=== PATIENT | male | born 1975 | race Caucasian/White ===

== ENCOUNTER 2021-03-29 18:48 | Inpatient (IN) | payer BC, SELFPAY ==
--- NOTE | ~2021-03-29 | CT_ITS ---
EXAMINATION: CT abdomen pelvis w con INDICATION: Pelvic pain TECHNIQUE: Computed tomographic images of the abdomen and pelvis were obtained after the administrati on of 100 cc of Omnipaque 350 intravenous contrast. The dose-length product (DLP) was 1730.43 mGy-cm. Automated exposure control and iterative reconstruction technique were employed. COMPARISON: 07/13/2016 FINDINGS: Minimal dependent atelectasis is present in the lung bases. The heart size is normal. The l iver, spleen, pancreas, gallbladder, and adrenal glands are normal. Nonobstructing stones of the kidn eys measure up to 3 mm on the left. There are no stones in the ureters or bladder. There is mild left inguinal lymphadenopathy, likely reactive. There is no free intraperitoneal gas or evidence of bowel obstruction. There is diffuse swelling of the scrotum. No scrotal or perineal gas is identified. The re is mild lumbar spondylosis. IMPRESSION: 1. Diffuse swelling of the scrotum without scrotal or perineal gas, consistent with edema versus infe ction. Reviewed, dictated and finalized at location A. IMPRESSION: 1. Diffuse swelling of the scrotum without scrotal or perineal gas, consistent with edema versus infection.
--- NOTE | ~2021-03-29 | US_ITS ---
EXAMINATION: US scrotum doppler DATE: 03/29/2021 22:57 INDICATION: Scrotal pain and swelling TECHNIQUE: Testicular sonogram utilizing grayscale and Doppler COMPARISON: None. FINDINGS: The right testis measures 3.7 x 2.4 x 3.6 cm. The left testis measures 3.2 x 3.2 x 4.4 cm. There is normal vascular flow to both testes. There is scrotal edema. The epididymides have a heterog eneous appearance which may be due to edema. A small left varicocele is noted. IMPRESSION: 1. Scrotal edema. Heterogeneous appearance of the epididymides is likely related to scrotal edema. Reviewed, dictated and finalized at location A. IMPRESSION: 1. Scrotal edema. Heterogeneous appearance of the epididymides is likely relate d to scrotal edema.
[2021-03-29 18:50] VITALS: BP 160/100; PULSE 116; RESP 16; TEMP 36.5; O2SAT 99
--- NOTE | 2021-03-29 20:02 | ED.GENADULT ---
HPI - General Adult General Chief complaint: Skin/Abscess/Foreign Body Stated complaint: testicular swelling Time Seen by Provider: 03/29/21 19:54 History of Present Illness HPI narrative: Patient 45-year-old gentleman who presents the emergency department with chief complaint of scrotal pain and swelling. Patient reports he is a poorly controlled diabetic and has not been taking his Metformin due to it causing pancreatitis. The patient states that about a week ago he started having pain and swelling in the left side of his scrotum. The patient states he noticed there was a small knot in the area and talk to his primary care physician who started him on oral clindamycin patient states that as this has been treated and is continued to increase in swelling has become a more red tender and swollen the patient states that now his scrotum is significantly swollen to about the size of a grapefruit. The patient states that it is exquisitely painful denies crepitance denies the area turning black or necrotic he does report that there is an ulceration present on the left side. Related Data Allergies Allergy/AdvReac Type Severity Reaction Status Date / Time [place] Pepper Allergy Unknown FACE RED Uncoded 02/09/19 03:02 AND SWELLS AND ITCHY SKIN Review of Systems Review of Systems: A 10 system review of systems was completed on the patient and is negative except for what is stated in the HPI. Nursing and ancillary documentation was reviewed. Exam Narrative: GENERAL: Well-appearing, well-nourished, and in no acute distress. HEAD: Normocephalic, atraumatic. EYES: PERRLA and EOMI. ENT: Nares clear, no rhinorrhea or epistaxis. Mucous membranes moist. NECK: Supple. CHEST: Clear to auscultation. No respiratory distress. HEART: Regular rate and rhythm. No murmur heard. Normal peripheral pulses. ABDOMEN: Soft, nontender, nondistended, normal active bowel sounds. : The scrotum is significantly edematous there is erythema of the entire scrotum and the scrotum is swollen there is a firm tender area in the left hemiscrotum there is no fluctuance there is no crepitance there is a ulceration present on the superficial skin on the left side EXTREMITIES: Normal range of motion. No edema. SKIN: Warm, dry, no rash. NEURO: No focal deficits. Alert and oriented x3. PSYCH: Normal mood and affect. Course Vital Signs Vital signs: Vital Signs Temperature 36.5 C 03/29/21 18:50 Pulse Rate 116 H 03/29/21 18:50 Respiratory Rate 16 03/29/21 18:50 Blood Pressure 160/100 H 03/29/21 18:50 Pulse Oximetry 99 03/29/21 18:50 Temperature 36.5 C 03/29/21 18:50 Pulse Rate 113 H 03/30/21 03:45 Respiratory Rate 19 03/30/21 03:45 Blood Pressure 141/83 H 03/30/21 03:45 Pulse Oximetry 98 03/30/21 03:45 Medical Decision Making Vital Signs Vital Signs: Vital Signs Temperature 36.5 C 03/29/21 18:50 Pulse Rate 116 H 03/29/21 18:50 Respiratory Rate 16 03/29/21 18:50 Blood Pressure 160/100 H 03/29/21 18:50 Pulse Oximetry 99 03/29/21 18:50 Temperature 36.5 C 03/29/21 18:50 Pulse Rate 113 H 03/30/21 03:45 Respiratory Rate 19 03/30/21 03:45 Blood Pressure 141/83 H 03/30/21 03:45 Pulse Oximetry 98 03/30/21 03:45 Lab Data Result diagrams: 03/29/21 21:17 03/30/21 01:57 Labs: Lab Results 03/29/21 03/29/21 03/29/21 Range/Units 21:17 22:01 22:24 WBC 13.2 H (4.5-10.0) K/mm3 RBC 4.44 L (4.6-6.20) M/mm3 Hgb 14.2 (14.0-18.0) g/dL Hct 39.2 L (42.0-52.0) % MCV 88.3 (80-100) fl MCH 32.0 (26-34) pg MCHC 36.2 H (32-36) g/dl RDW 12.6 (11.5-14.5) % Plt Count 260 (150-375) k/mm3 MPV 10.0 (7.4-10.4) fl Immature Gran % (Auto) 0.6 H (0-0.5) % Neut % (Auto) 73.8 H (45.5-73.1) % Lymph % (Auto) 16.6 L (18.3-44.2) % [place] % (Auto) 7.8 (2.6-8.5) % Eos % (Auto) 0.9 (0-4.4) % Baso % (Auto) 0.3 (
[2021-03-29] MEDS: ONDANSETRON INJ 4 MG/2 ML VIAL IV PUSH (21:21)
[2021-03-29] MEDS: MORPHINE SULFATE (*CRX) 4 MG/ML INJ IV PUSH (21:21)
[2021-03-29] MEDS: SODIUM CHLORIDE 0.9% IV 1,000 ML 999 ML IV CONT (21:22)
[2021-03-29 21:28] LABS: Basophils Percent Auto 0.3 % (0.2-1.2); Eosinophils Absolute Auto 0.1 K/mm3 (0-0.3); Eosinophils Percent Auto 0.9 % (0-4.4); Hematocrit 39.2 % (42.0-52.0); Hemoglobin 14.2 g/dL (14.0-18.0); Immature Granulocyte Absolute 0.08 K/mm3 (0.00-0.031); Immature Granulocyte Percent A 0.6 % (0-0.5); Lymphocytes Absolute Auto 2.19 K/mm3 (0.9-3.2); Lymphocytes Percent Auto 16.6 % (18.3-44.2); Mean Corpuscular HGB Conc 36.2 g/dl (32-36); Mean Corpuscular Volume 88.3 fl (80-100); Monocytes Percent Auto 7.8 % (2.6-8.5); Neutrophils Absolute Auto 9.7 K/mm3 (1.3-6.7); Neutrophils Percent Auto 73.8 % (45.5-73.1); Platelet Count Result 260 k/mm3 (150-375); Red Blood Count 4.44 M/mm3 (4.6-6.20); Red Cell Distribution Width 12.6 % (11.5-14.5); White Blood Count 13.2 K/mm3 (4.5-10.0)
[2021-03-29 21:46] VITALS: BP 125/86; PULSE 109; RESP 15; O2SAT 98
[2021-03-29 22:36] LABS: Add Urine Microscopic? YES; Appearance Urine Clear (Clear); Bilirubin Urine Negative (Negative); Blood Urine Negative (Negative); Color Urine Yellow (Yellow); Glucose Urine UA 3+ mg/dL (Negative); Ketones Urine 1+ mg/dL (Negative); Leukocyte Esterase Ur Negative LEU/UL (Negative); Nitrate Urine Negative (Negative); Protein Urine Negative (Negative); RBC Urine 0-2 /hpf (0-2); Squamous Epithelial Cell Urine Rare /hpf (Few); Urobilinogen Urine Negative mg/dL (<2.0); WBC Urine 0-3 /hpf
[2021-03-29 22:44] LABS: Partial Thromboplastin Time 24.7 SECONDS (22.3-36.8); Prothrombin Time 12.9 Seconds (11.1-14.7)
[2021-03-29 23:09] LABS: Specific Grav Ur 1.044 (1.001-1.035)
[2021-03-30] VITALS (10 sets, daily range): BP systolic 111–148; BP diastolic 67–100; PULSE 104–120; RESP 15–22; TEMP 36.5–37.1; O2SAT 93–100; BMI 35.9
--- NOTE | 2021-03-30 01:30 | PC.NURSE ---
charge nurse in room attempting blood draw at this time.
--- NOTE | 2021-03-30 01:51 | PC.NURSE ---
charge nurse unable to obtain blood. phlebotomy in room at this time.
[2021-03-30 02:14] LABS: Alanine Aminotransferase 16 U/L (4-50); Albumin Level 3.8 g/dL (3.5-5.1); Alkaline Phosphatase 86 U/L (38-126); Anion Gap 9 mmol/L (8-16); Aspartate Amino Transferase 16 U/L (17-59); Blood Urea Nitrogen 9 mg/dL (9-20); Calcium 8.8 mg/dL (8.4-10.2); Carbon Dioxide 24 mmol/L (22-30); Chloride 101 mmol/L (98-107); Estimated CRCL calculation 195 ml/min; Estimated Glomerular Filt Rate > 60; Glucose 340 mg/dL (65-110); Lactic Acid Reflex 1.4 mmol/L (0.7-2.1); Magnesium 1.9 mg/dL (1.6-2.3); Potassium 3.8 mmol/L (3.4-5.0); Sodium 134 mmol/L (137-145)
--- NOTE | 2021-03-30 03:16 | PC.NURSE ---
Assumed care of pt at this time. Pt is alert on stretcher, discussed POC. VSS.
[2021-03-30] MEDS: MORPHINE SULFATE (*CRX) 4 MG/ML INJ IV PUSH ×3 (03:36→13:24)
[2021-03-30 05:53] LABS: CRP 19.7 mg/dL (<1.0)
[2021-03-30] MEDS: SODIUM CHLORIDE 0.9% IV 1,000 ML 125 ML IV CONT ×2 (06:27→20:16)
--- NOTE | 2021-03-30 07:03 | ADMGEN ---
This patient, Jose Luis Alves, was admitted to [facility] Surg Room 309-01 at 0600. Patient/family oriented to hospital policies and general routines including ID bracelet, bed and alarms, visiting hours, pain management, procedures, bathroom and other care routines, personal items, smoking policy, room service/diet, and visiting hours. Information on how to activate the Rapid Response Team has been discussed. Patient/Family are encouraged to report perceived risks to care and to ask questions if they do not understand what they are told or what they should do.
[2021-03-30 08:11] LABS: Glucose Point of Care 270 mg/dl (65-105)
[2021-03-30] MEDS: INSULIN ASPART (*BKC) 100 UNITS/ML SUB-Q ×2 (09:12→17:30)
--- NOTE | 2021-03-30 09:14 | PM.IMHP ---
H&P: HPI History of Present Illness Date/Time: 03/30/21 09:15 Chief Complaint: Scrotal swelling Narrative: Patient 45-year-old gentleman who presents the emergency department with chief complaint of scrotal pain and swelling. Patient reports he is a poorly controlled diabetic and has not been taking his Metformin due to it causing pancreatitis. The patient states that about a week ago he started having pain and swelling in the left side of his scrotum. The patient states he noticed there was a small knot in the area and talked to his primary care physician who started him on oral clindamycin patient states that as this has been treated and is continued to increase in swelling has become a more red tender and swollen the patient states that now his scrotum is significantly swollen to about the size of a grapefruit. The patient states that it is exquisitely painful denies crepitance denies the area turning black or necrotic he does report that there is an ulceration present on the left side. he reports the pain is not present on the right side of his scrotum. No fever chills Review of Systems Review of Systems: - CONSTITUTIONAL: Denies weight loss, fever and chills. - HEENT: Denies changes in vision and hearing - RESPIRATORY: Denies SOB and cough. - CV: Denies palpitations and CP. - GI: Denies abdominal pain, nausea, vomiting and diarrhea. - : Denies dysuria and urinary frequency. - MSK: Denies myalgia and joint pain. - SKIN: Denies rash and pruritus. - NEUROLOGICAL: Denies headache and syncope. - PSYCHIATRIC: Denies recent changes in mood. Denies anxiety and depression. All systems reviewed & are unremarkable except as noted in HPI and below Constitutional: Constitutional: Reports fatigue and Reports weakness Neurologic: Reports weakness Endocrine: Endocrine: Reports fatigue [facility] Family History Family History (Updated 03/30/21 @ 07:05 by Khushbu Rodrigues RN) Mother Cancer of stomach Other Hypertension Lupus Social History Social History Years smoked: 35 Smoking status: Light tobacco smoker Tobacco type: cigarettes Alcohol intake: former Substance use: current Substance use type: marijuana Spiritual care concerns: No Meds Home Medications and Allergies Home Medications Medication Instructions Recorded Confirmed Type ergocalciferol (vitamin D2) 50,000 unit PO WEEKLY 03/30/21 03/30/21 History [Vitamin D2] ibuprofen 800 mg PO TID PRN 03/30/21 03/30/21 History lisinopril 20 mg PO DAILY 03/30/21 03/30/21 History Allergies Allergy/AdvReac Type Severity Reaction Status Date / Time [place] Pepper Allergy Unknown FACE RED Uncoded 03/30/21 05:44 AND SWELLS AND ITCHY SKIN Vital Signs Vital Signs - 24 hr 03/29/21 18:50 03/29/21 21:46 03/30/21 00:25 Temperature 97.7 F Pulse Rate 116 H 109 H 104 H Respiratory Rate 16 15 22 H Blood Pressure 160/100 H 125/86 Pulse Oximetry 99 98 100 03/30/21 03:09 03/30/21 03:45 03/30/21 04:46 Temperature Pulse Rate 108 H 113 H 110 H Respiratory Rate 20 19 18 Blood Pressure 148/100 H 141/83 H 133/85 Pulse Oximetry 97 98 99 03/30/21 05:51 03/30/21 06:00 Temperature 98.8 F Pulse Rate 107 H 120 H Respiratory Rate 15 16 Blood Pressure 134/81 134/79 Pulse Oximetry 100 94 Exam Narrative: GENERAL: Well-appearing, well-nourished, and in no acute distress. HEAD: Normocephalic, atraumatic. EYES: PERRLA and EOMI. ENT: Nares clear, no rhinorrhea or epistaxis. Mucous membranes moist. NECK: Supple. nontender CHEST: Clear to auscultation. No respiratory distress. HEART: Regular rate and rhythm. No murmur heard. Normal peripheral pulses. ABDOMEN: Soft, nontender, nondistended, normal active bowel sounds. : The scrotum is significantly edematous there is erythema of the entire scrotum and the scrotum is swollen there is a firm tender area in
[2021-03-30 12:14] LABS: Glucose Point of Care 327 mg/dl (65-105)
[2021-03-30] MEDS: INSULIN ASPART (*BKC) 100 UNITS/ML 10 UNITS SUB-Q (13:25)
--- NOTE | 2021-03-30 13:25 | WPDURCON ---
Assessment and Plan Assessment and plan (1) Cellulitis of scrotum: Code(s): N49.2 - Inflammatory disorders of scrotum Status: Acute Assessment and Plan: 45 yo WM with poorly controlled DM presenting with scrotal cellulitis. I personally reviewed his US and CT. He has no gas and no drainable fluid collection. Would recommend broad-spectrum IV abx, scrotal elevation, STRICT blood sugar control, and pain management. Based on his current exam, there is no surgically drainable collection/abscess and there is no evidence of javi's gangrene. will follow and I have asked nursing to notify me if there is change in his scrotal exam. Urology Consult Note HPI Date Seen: 03/30/21 Requesting Physician: Sherley Chakraborty DO Primary Care Provider: Batsheva Dyer, Consult Narrative Narrative: Jose Luis Alves is a 45 year old male presents with worsening scrotal pain and swelling. He is a poorly controlled diabetic who has been off of his medication for months. Over a week ago, he noted a small left scrotal cyst/nodule. PCP started clindamycin as an outpatient. Since that time, he notes worsening scrotal swelling, edema and pain. No difficulty voiding. Had US and CT in ER last night. Has scrotal edema and stranding consistent with scrotal cellulitis. There was no gas and no drainable fluid collection on CT or US. Has been admitted and started on vanc and zosyn. HgA1C was 11. Hospitalist is working on blood sugar control. Review of Systems Review of Systems: All systems reviewed & are unremarkable except as noted in HPI and below [facility] Family History Family History (Updated 03/30/21 @ 07:05 by Khushbu Rodrigues RN) Mother Cancer of stomach Other Hypertension Lupus Social History Social History Years smoked: 35 Smoking status: Light tobacco smoker Tobacco type: cigarettes Alcohol intake: former Substance use: current Substance use type: marijuana Spiritual care concerns: No Meds Home Medications and Allergies Home Medications Medication Instructions Recorded Confirmed Type ergocalciferol (vitamin D2) 50,000 unit PO WEEKLY 03/30/21 03/30/21 History [Vitamin D2] ibuprofen 800 mg PO TID PRN 03/30/21 03/30/21 History lisinopril 20 mg PO DAILY 03/30/21 03/30/21 History Allergies Allergy/AdvReac Type Severity Reaction Status Date / Time [place] Pepper Allergy Unknown FACE RED Uncoded 03/30/21 05:44 AND SWELLS AND ITCHY SKIN Vital Signs Vital Signs - 24 hr 03/29/21 18:50 03/29/21 21:46 03/30/21 00:25 Temperature 36.5 C Pulse Rate 116 H 109 H 104 H Respiratory Rate 16 15 22 H Blood Pressure 160/100 H 125/86 Pulse Oximetry 99 98 100 03/30/21 03:09 03/30/21 03:45 03/30/21 04:46 Temperature Pulse Rate 108 H 113 H 110 H Respiratory Rate 20 19 18 Blood Pressure 148/100 H 141/83 H 133/85 Pulse Oximetry 97 98 99 03/30/21 05:51 03/30/21 06:00 Temperature 37.1 C Pulse Rate 107 H 120 H Respiratory Rate 15 16 Blood Pressure 134/81 134/79 Pulse Oximetry 100 94 Exam Const: General: cooperative, healthy appearing and comfortable (states he is tired; was up all night) Nutritional Appearance: well nourished Orientation/consciousness: patient oriented x3 HENMT: Head: normal to inspection Ears: hearing grossly normal bilaterally General nose exam: Normal external nose present Eyes: General: appearance normal, both eyes and all related structures Neck: Neck: normal visual inspection Chest: Chest palpation & inspection: normal inspection of the chest Resp: Effort & Inspection: normal respiratory effort GI: Inspection: normal to inspection GI Palp: No abdominal tenderness : General: Yes no CVA tenderness Penis: Yes normal penis Scrotum: edematous and erythematous Other: has diffuse scrotal edema with erythema. On the left hemiscrotum near the perineum,
[2021-03-30] MEDS: oxyCODONE/ACETAMINOPHEN (*CRX) 5-325 MG TABLET 1 TABLET PO ×2 (16:04→21:17)
[2021-03-30] MEDS: INSULIN ASPART (*BKC) 100 UNITS/ML 8 UNITS SUB-Q (17:30)
[2021-03-30 17:47] LABS: Glucose Point of Care 300 mg/dl (65-105)
[2021-03-30] MEDS: INSULIN GLARGINE (*BKC) 100 UNITS/ML 20 UNITS SUB-Q (21:27)
[2021-03-30 21:44] LABS: Glucose Point of Care 283 mg/dl (65-105)
[2021-03-31] VITALS (10 sets, daily range): BP systolic 106–147; BP diastolic 56–88; PULSE 99–116; RESP 16–22; TEMP 36.3–37.6; O2SAT 92–97
[2021-03-31] MEDS: MORPHINE SULFATE (*CRX) 4 MG/ML INJ IV PUSH ×2 (00:35→09:46)
[2021-03-31] MEDS: oxyCODONE/ACETAMINOPHEN (*CRX) 5-325 MG TABLET 1 TABLET PO ×4 (03:33→23:09)
[2021-03-31] MEDS: SODIUM CHLORIDE 0.9% IV 1,000 ML 120 ML IV CONT ×2 (05:11→09:09)
[2021-03-31 08:27] LABS: Glucose Point of Care 266 mg/dl (65-105)
[2021-03-31 08:54] LABS: Basophils Percent Auto 0.4 % (0.2-1.2); Eosinophils Absolute Auto 0.1 K/mm3 (0-0.3); Eosinophils Percent Auto 0.7 % (0-4.4); Hematocrit 33.9 % (42.0-52.0); Hemoglobin 11.8 g/dL (14.0-18.0); Immature Granulocyte Absolute 0.07 K/mm3 (0.00-0.031); Immature Granulocyte Percent A 0.7 % (0-0.5); Lymphocytes Absolute Auto 1.57 K/mm3 (0.9-3.2); Lymphocytes Percent Auto 15.8 % (18.3-44.2); Mean Corpuscular HGB Conc 34.8 g/dl (32-36); Mean Corpuscular Hemoglobin 31.1 pg (26-34); Mean Corpuscular Volume 89.2 fl (80-100); Mean Platelet Volume 9.3 fl (7.4-10.4); Monocytes Absolute Auto 0.8 K/mm3 (0.1-0.6); Monocytes Percent Auto 8.5 % (2.6-8.5); Neutrophils Absolute Auto 7.4 K/mm3 (1.3-6.7); Neutrophils Percent Auto 73.9 % (45.5-73.1); Platelet Count Result 197 k/mm3 (150-375); Red Cell Distribution Width 12.7 % (11.5-14.5); White Blood Count 9.9 K/mm3 (4.5-10.0)
[2021-03-31 09:04] LABS: Anion Gap 4 mmol/L (8-16); Blood Urea Nitrogen 7 mg/dL (9-20); Calcium 8.1 mg/dL (8.4-10.2); Carbon Dioxide 30 mmol/L (22-30); Chloride 99 mmol/L (98-107); Estimated CRCL calculation 164 ml/min; Estimated Glomerular Filt Rate > 60; Glucose 278 mg/dL (65-110); Potassium 3.3 mmol/L (3.4-5.0); Sodium 133 mmol/L (137-145)
[2021-03-31] MEDS: INSULIN ASPART (*BKC) 100 UNITS/ML SUB-Q ×3 (09:10→17:25)
[2021-03-31] MEDS: INSULIN ASPART (*BKC) 100 UNITS/ML 8 UNITS SUB-Q ×2 (09:10→13:16)
[2021-03-31] MEDS: lisinopriL 20 MG TABLET PO (09:20)
--- NOTE | 2021-03-31 09:41 | WPDUROPN2 ---
Progress Note: A&P Assessment and Plan (1) Cellulitis of scrotum: Code(s): N49.2 - Inflammatory disorders of scrotum Status: Acute Assessment and Plan: 45 yo poorly controlled diabetic admitted with scrotal cellulitis. Today's exam is consistent with a possible fluctuance/scrotal abscess on the left inferior hemiscrotum. No crepitus. Has been on broad-spectrum abx. Due to the probable abscess formation, I recommended that we proceed to the OR today for scrotal incision and debridement. I explained that the wound would be left open to drain and heal by secondary intention and would require packing BID. We discussed risks including but not limited to bleeding, infection, damage to the testicle, possible need for further washout in the future, and risks of anesthesia. He elects to proceed. He had breakfast at 830am so will plan for OR after 230pm today. Subjective Subjective Date/Time Seen: 03/31/21 09:41 No fevers. Feels scrotal pain is about the same. Had episode of emesis after breakfast this AM Review of Systems Review of Systems: All systems reviewed & are unremarkable except as noted in HPI and below Exam Const: General: cooperative, healthy appearing and comfortable Nutritional Appearance: obese Resp: Effort & Inspection: normal respiratory effort GI: GI Palp: No abdominal tenderness and Yes Soft to palpation : Penis: Yes normal penis Scrotum: edematous and erythematous Other: mild diffuse scrotal edema and erythema; on the inferior aspect of the left hemiscrotum there is a 2 cm area of induration. On today's exam, there is some mild ecchymosis at the center of the indurated area and there is a palpable fluctuance suggestive of an abscess. There is no crepitus. He had scant drainage of bloody fluid on the towel. Objective Data Vital Signs Vital Signs: Vital Signs - 24 hr 03/30/21 14:00 03/30/21 20:00 03/30/21 21:50 Temperature 36.6 C 36.5 C Pulse Rate 115 H 111 H 111 H Respiratory Rate 18 20 20 Blood Pressure 111/67 145/85 H Pulse Oximetry 96 93 96 03/30/21 21:54 03/31/21 05:47 Temperature 36.3 C L Pulse Rate 112 H Respiratory Rate 20 Blood Pressure 131/88 Pulse Oximetry 93 96 Intake/Output Intake/Output: Intake & Output 03/28/21 03/29/21 03/30/21 03/31/21 23:59 23:59 23:59 23:59 Intake Total 1050 4180 2600 Output Total 1800 Balance 1050 4180 800 Meds/Results Medications: Active Medications Generic Name Dose Route Start Last Admin Trade Name Freq PRN Reason Stop Dose Admin Dextrose 12.5 gm 03/30/21 11:56 Dextrose 50% 25 Gm/50 Ml Syringe IV PUSH PRN PRN Hypoglycemia Protocol Ergocalciferol 50,000 unit 04/03/21 09:00 Ergocalciferol 50,000 Unit Capsule PO We@0900 DENNIS Glucagon 1 mg 03/30/21 11:56 Glucagon For Inj 1 Mg Vial IM PRN PRN Hypoglycemia Protocol Glucose 15 gm 03/30/21 11:56 Glucose Oral Gel 15 Gm Of Glucse In 37.5 Gm Tube PO PRN PRN Hypoglycemia Protocol Piperacillin/Tazobactam/Dextrose 3.375 gm in 50 mls @ 100 mls/hr 03/30/21 03:00 03/31/21 09:11 Zosyn 3.375 Gm/D5w 50ml Pm IVPB 100 mls/hr Q6H DENNIS Administration Vancomycin HCl 2,000 mg in 500 mls @ 250 mls/hr 03/30/21 10:00 03/30/21 23:00 Vancomycin 2,000 Mg/D5w 500 Ml IVPB Infused Q12H DENNIS Infusion Sodium Chloride 1,000 mls @ 125 mls/hr 03/30/21 04:15 03/31/21 09:09 Normal Saline Iv IV CONT 120 mls/hr .Q8H DENNIS Administration Dextrose 1,000 mls @ 100 mls/hr 03/30/21 11:56 Dextrose 5% 1,000 Ml IVPB PRN PRN Hypoglycemia Protocol Ibuprofen 800 mg 03/30/21 14:09 Ibuprofen 400 Mg Tablet PO TID PRN Pain rated 1-3 Insulin Aspart 8 units 03/30/21 12:00 03/31/21 09:10 Insulin Aspart (*Bkc) 100 Units/Ml SUB-Q 8 units TIDWM DENNIS Administration Insulin Aspart 2 - 5 units 03/30/21 12:00 03/31/21 09:10 Insulin Aspart (*Bkc) 100 Unit
--- NOTE | 2021-03-31 10:11 | WPDHPUPDATE1 ---
History and Physical Update Update Date/Time: 03/31/21 10:11 History and Physical has been reviewed, including an updated exam of the patient. There are NO changes in the patient's condition. Risks, benefits, and alternatives have been discussed and questions answered. Patient agrees to proceed with procedure.
--- NOTE | 2021-03-31 10:17 | WPDANESEPP ---
Anes - Eval Pre Procedure Procedure: Scrotal I&D Date/Time: 03/31/21 10:17 Pre Op Diagnosis: Scrotal Cellulitis, Hyperglycemia Patient Data Age: 45 Gender: M Height: 1.75 m Weight: 110.4 kg Last Vital Signs Temp 36.3 C L 03/31/21 05:47 Pulse 112 H 03/31/21 05:47 Resp 20 03/31/21 05:47 BP 131/88 03/31/21 05:47 Pulse Ox 96 03/31/21 05:47 Allergies Allergy/AdvReac Type Severity Reaction Status Date / Time [place] Pepper Allergy Unknown FACE RED Uncoded 03/30/21 05:44 AND SWELLS AND ITCHY SKIN Home Medications Medication Instructions Recorded Confirmed Type ergocalciferol (vitamin D2) 50,000 unit PO WEEKLY 03/30/21 03/30/21 History [Vitamin D2] ibuprofen 800 mg PO TID PRN 03/30/21 03/30/21 History lisinopril 20 mg PO DAILY 03/30/21 03/30/21 History Laboratory Tests 03/30/21 03/30/21 03/30/21 11:59 17:30 21:25 WBC RBC Hgb Hct MCV MCH MCHC RDW Plt Count MPV Immature Gran % (Auto) Neut % (Auto) Lymph % (Auto) [place] % (Auto) Eos % (Auto) Baso % (Auto) Lymph # (Auto) [place] # (Auto) Eos # (Auto) Baso # (Auto) Abs Immat Gran (auto) Absolute Neuts (auto) Absolute Nucleated RBC Nucleated RBC % Sodium Potassium Chloride Carbon Dioxide Anion Gap BUN Creatinine Estim Creat Clear Calc Estimated GFR Glucose POC Capillary Glucose 327 mg/dl H mg/dl 300 mg/dl H mg/dl 283 mg/dl H mg/dl (65-105) (65-105) (65-105) Calcium Vancomycin Trough 03/31/21 03/31/21 03/31/21 08:24 08:46 08:46 WBC 9.9 K/mm3 K/mm3 (4.5-10.0) RBC 3.80 M/mm3 L M/mm3 (4.6-6.20) Hgb 11.8 g/dL L g/dL (14.0-18.0) Hct 33.9 % L % (42.0-52.0) MCV 89.2 fl fl (80-100) MCH 31.1 pg pg (26-34) MCHC 34.8 g/dl g/dl (32-36) RDW 12.7 % % (11.5-14.5) Plt Count 197 k/mm3 k/mm3 (150-375) MPV 9.3 fl fl (7.4-10.4) Immature Gran % (Auto) 0.7 % H % (0-0.5) Neut % (Auto) 73.9 % H % (45.5-73.1) Lymph % (Auto) 15.8 % L % (18.3-44.2) [place] % (Auto) 8.5 % % (2.6-8.5) Eos % (Auto) 0.7 % % (0-4.4) Baso % (Auto) 0.4 % % (0.2-1.2) Lymph # (Auto) 1.57 K/mm3 K/mm3 (0.9-3.2) [place] # (Auto) 0.8 K/mm3 H K/mm3 (0.1-0.6) Eos # (Auto) 0.1 K/mm3 K/mm3 (0-0.3) Baso # (Auto) 0.0 K/mm3 K/mm3 (0.0-0.1) Abs Immat Gran (auto) 0.07 K/mm3 H K/mm3 (0.00-0.031) Absolute Neuts (auto) 7.4 K/mm3 H K/mm3 (1.3-6.7) Absolute Nucleated RBC 0.0 K/mm3 K/mm3 (0.0-0.012) Nucleated RBC % 0.0 % % (0.0-0.2) Sodium Potassium Chloride Carbon Dioxide Anion Gap BUN Creatinine Estim Creat Clear Calc Estimated GFR Glucose POC Capillary Glucose 266 mg/dl H mg/dl (65-105) Calcium Vancomycin Trough 7.0 ug/mL L ug/mL (10.0-20.0) 03/31/21 08:46 WBC RBC Hgb Hct MCV MCH MCHC RDW Plt Count MPV Immature Gran % (Auto) Neut % (Auto) Lymph % (Auto) [place] % (Auto) Eos % (Auto) Baso % (Auto) Lymph # (Auto) [place] # (Auto) Eos # (Auto) Baso # (Auto) Abs Immat Gran (auto) Absolute Neuts (auto) Absolute Nucleated RBC Nucleated RBC % Sodium 133 mmol/L L mm
--- NOTE | 2021-03-31 10:55 | PC.NURSE ---
To OR via bed.
--- NOTE | 2021-03-31 10:59 | WPDANESEFPP ---
Anes - Eval Final PreProcedure Day of Procedure 03/31/21 10:59 Patient weight: obese Heart: regular rate and rhythm Lungs: clear to auscultation Airway: Mallampati scale class II Neurological: alert and oriented Last oral intake: 2 hours (830 am - vomited after) ASA classification: III Emergent: yes Anesthetic plan: proceed Anesthesia type and monitoring: general ETT and standard monitoring Results Review: All pre-operative results and documents have been reviewed as part of the pre-operative evaluation. Informed Consent: The patient's anesthetic plan of GA with ETT and its attendant risks including aspiration and benefits were discussed with the patient and surgeon. Questions were solicited and answers provided to the satisfaction of the patient. He agrees to proceed.
--- NOTE | 2021-03-31 11:38 | PM.OP ---
Procedure Note - Brief Procedure Note - Brief Date of procedure: 03/31/21 Pre-op diagnosis: Scrotal Cellulitis, Hyperglycemia Post-op diagnosis: same (with scrotal abscess and urethral meatal stenosis) Procedure performed: incision and drainage of scrotal abscess Description of procedure: see dictation Implants: none Anesthesia: GETA Surgeon: Indira Houser MD Estimated blood loss (mL): 25 Drains: Yes (14 fr patricio) Packing: Yes (iodoform gauze) Pathology: other (wound culture) Complications: No immediate complications Condition: stable Disposition: PACU Findings: Dictation# [id number]
[2021-03-31 11:55] LABS: Glucose Point of Care 247 mg/dl (65-105)
--- NOTE | 2021-03-31 12:16 | SUR.PHASEI ---
1215 sbar faxed floor notified
--- NOTE | 2021-03-31 12:45 | PC.NURSE ---
Back from OR via bed.
[2021-03-31 13:13] LABS: Glucose Point of Care 240 mg/dl (65-105)
--- NOTE | 2021-03-31 13:48 | PM.IMPN ---
Progress Note: A&P Assessment and Plan (1) Cellulitis of scrotum: Code(s): N49.2 - Inflammatory disorders of scrotum Status: Acute (2) Sepsis: Code(s): A41.9 - Sepsis, unspecified organism Status: Acute (3) Hypertension: Code(s): I10 - Essential (primary) hypertension Status: Acute (4) Diabetes mellitus with hyperglycemia: Code(s): E11.65 - Type 2 diabetes mellitus with hyperglycemia Status: Acute Additional Plan #Sepsis meets SIRS criteria with source of infection. Lactic acid normal #Scrotal cellulitis on vancomycin and Zosyn recently was on clindamycin as an outpatient basis now with evidence of scrotal abscess status post I and D by urology team appreciate the help #Uncontrolled diabetes mellitus A1c 11 SSI Lantus start basal bolus regimen on metformin at home. Adjust insulin with Lantus increased to 28 units and prandial insulin to 10 units with meals #Hypertension lisinopril at home #DVT prophylaxis Lovenox #Full code status Subjective Date/time seen: 03/31/21 13:48 Interval history: Patient went for a surgery today incision and drainage of scrotal abscess done. He is groggy today as he just got back of the surgery. He denies any pain no fever chills Review of Systems Review of Systems: All systems reviewed & are unremarkable except as noted in HPI and below Exam Narrative: GENERAL: Well-appearing, well-nourished, and in no acute distress. HEAD: Normocephalic, atraumatic. EYES: PERRLA and EOMI. ENT: Nares clear, no rhinorrhea or epistaxis. Mucous membranes moist. NECK: Supple. nontender CHEST: Clear to auscultation. No respiratory distress. HEART: Regular rate and rhythm. No murmur heard. Normal peripheral pulses. ABDOMEN: Soft, nontender, nondistended, normal active bowel sounds. : The scrotum is packed with scrotal support currently EXTREMITIES: Normal range of motion. No edema. SKIN: Warm, dry, no rash. NEURO: No focal deficits. Alert and oriented x3. PSYCH: Normal mood and affect. Objective Data Vital Signs Vital Signs: Vital Signs - 24 hr 03/30/21 14:00 03/30/21 20:00 03/30/21 21:50 Temperature 97.9 F 97.7 F Pulse Rate 115 H 111 H 111 H Respiratory Rate 18 20 20 Blood Pressure 111/67 145/85 H Pulse Oximetry 96 93 96 03/30/21 21:54 03/31/21 05:47 03/31/21 11:50 Temperature 97.4 F L 98.7 F Pulse Rate 112 H 116 H Respiratory Rate 20 22 H Blood Pressure 131/88 112/73 Pulse Oximetry 93 96 97 03/31/21 12:05 03/31/21 12:25 03/31/21 12:55 Temperature 99.2 F Pulse Rate 108 H 102 H 100 Respiratory Rate 20 16 16 Blood Pressure 106/63 123/61 117/56 L Pulse Oximetry 92 95 95 03/31/21 13:10 Temperature 98.9 F Pulse Rate 103 H Respiratory Rate 18 Blood Pressure 111/60 Pulse Oximetry 95 Intake/Output Intake/Output: Intake & Output 03/28/21 03/29/21 03/30/21 03/31/21 23:59 23:59 23:59 23:59 Intake Total 1050 4180 2890 Output Total 2925 Balance 1050 4180 -35 Meds/Results Medications: Active Medications Generic Name Dose Route Start Last Admin Trade Name Freq PRN Reason Stop Dose Admin Dextrose 12.5 gm 03/30/21 11:56 Dextrose 50% 25 Gm/50 Ml Syringe IV PUSH PRN PRN Hypoglycemia Protocol Ergocalciferol 50,000 unit 04/03/21 09:00 Ergocalciferol 50,000 Unit Capsule PO We@0900 DENNIS Glucagon 1 mg 03/30/21 11:56 Glucagon For Inj 1 Mg Vial IM PRN PRN Hypoglycemia Protocol Glucose 15 gm 03/30/21 11:56 Glucose Oral Gel 15 Gm Of Glucse In 37.5 Gm Tube PO PRN PRN Hypoglycemia Protocol Piperacillin/Tazobactam/Dextrose 3.375 gm in 50 mls @ 100 mls/hr 03/30/21 03:00 03/31/21 09:41 Zosyn 3.375 Gm/D5w 50ml Pm IVPB Infused Q6H DENNIS Infusion Dextrose 1,000 mls @ 100 mls/hr 03/30/21 11:56 Dextrose 5% 1,000 Ml IVPB PRN PRN Hypoglycemia Protocol Vancomycin HCl 1,750 mg in 500 mls @ 250 mls/hr 03/31/21 12:00
[2021-03-31] MEDS: POTASSIUM CHLORIDE 20 MEQ PACKET (FOR LIQUID) 40 MEQ PO (14:55)
[2021-03-31 17:16] LABS: Glucose Point of Care 201 mg/dl (65-105)
[2021-03-31] MEDS: INSULIN ASPART (*BKC) 100 UNITS/ML 10 UNITS SUB-Q (17:26)
[2021-03-31] MEDS: INSULIN GLARGINE (*BKC) 100 UNITS/ML 28 UNITS SUB-Q (20:35)
[2021-03-31 21:51] LABS: Glucose Point of Care 233 mg/dl (65-105)
--- NOTE | 2021-04-01 | ECHO_ITS ---
Patient Info Name: Jose Luis Alves Age: 45 years : 1975 Gender: Male Ht: 69 in Wt: 243 lbs BSA: 2.36 m2 HR: 109 bpm BP: 169 / 111 mmHg Heart Rhythm: Sinus Rhythm Exam Date: 04/01/2021 9:28 AM Exam Location: [facility] Patient Status: Inpatient Admit Date: 03/30/2021 Staff Ordering Physician: Johnathon Yi MD Senior Clinical Data Coordinator: Lion Reynolds, POLLY, RT Attending Provider: Sherley Chakraborty DO Exam Type: CA echo dop color flow w con Study Info Indications R01.1 - Cardiac murmur, unspecified Complete two-dimensional, color flow and Doppler transthoracic echocardiogram is performed with contrast to opacify the left ventricle and to improve the deliniation of the left ventricle endocardial borders. Summary 1. There is mild concentric increased left ventricular wall thickness. 2. Left ventricular systolic function is normal, estimated at 65-70%. 3. No significant valvular abnormality. 4. Trivial amount of mitral regurgitation could be the audible cardiac murmur. Left Ventricle Left ventricular chamber dimension is normal. Left ventricular systolic function is normal, estimated at 65-70%. There is mild concentric increased left ventricular wall thickness. The left ventricular diastolic function is grade I diastolic dysfunction. Right Ventricle Right ventricular chamber dimension is normal. Left Atria Left atrial chamber dimension is normal. Right Atria Right atrial chamber dimension is normal. Aortic Valve The aortic valve is normal. Pulmonic Valve The pulmonic valve is normal. Mitral Valve The mitral valve has normal leaflets. There is trace mitral valve regurgitation. Tricuspid Valve The tricuspid valve leaflets are normal. Pericardium/Pleural The pericardium appears normal. Aorta The aortic root size at the sinus of Valsalva is normal. Left Ventricular Outflow Tract Name Value Normal LVOT 2D LVOT Diameter 1.99 cm LVOT Doppler LVOT Peak Gradient 11 mmHg LVOT Mean Gradient 7 mmHg LVOT VTI 30.97 cm LVOT VTI/AV VTI Ratio 0.91 LVOT Stroke Volume 96.09 ml LVOT CO 9.74 l/min LVOT CI 4.13 L/min/m2 Mitral Valve Name Value Normal MV Doppler MV Peak Gradient 2 mmHg MV Mean Gradient 1 mmHg MV Decel Cole 496.63 cm/s2 MV PHT 0 s MV Area (PHT) 3.58 cm2 4.00-5.00 MV Area (Cont Eq VTI) 8.51 cm2 MV Regurgitation Doppler MR Peak Gradient 124 mmHg M
[2021-04-01] MEDS: MORPHINE SULFATE (*CRX) 4 MG/ML INJ IV PUSH ×3 (02:47→20:29)
[2021-04-01 04:00] VITALS: BP 169/91; PULSE 111; RESP 22; TEMP 36.1; O2SAT 98
[2021-04-01 05:12] LABS: Hematocrit 34.4 % (42.0-52.0); Mean Corpuscular HGB Conc 34.9 g/dl (32-36); Mean Corpuscular Hemoglobin 31.1 pg (26-34); Mean Corpuscular Volume 89.1 fl (80-100); Mean Platelet Volume 9.6 fl (7.4-10.4); Platelet Count Result 228 k/mm3 (150-375); Red Blood Count 3.86 M/mm3 (4.6-6.20); Red Cell Distribution Width 12.5 % (11.5-14.5); White Blood Count 9.1 K/mm3 (4.5-10.0)
[2021-04-01 05:23] LABS: Anion Gap 7 mmol/L (8-16); Blood Urea Nitrogen 8 mg/dL (9-20); Calcium 8.5 mg/dL (8.4-10.2); Carbon Dioxide 28 mmol/L (22-30); Chloride 100 mmol/L (98-107); Estimated CRCL calculation 142 ml/min; Estimated Glomerular Filt Rate > 60; Glucose 284 mg/dL (65-110); Potassium 3.4 mmol/L (3.4-5.0); Sodium 135 mmol/L (137-145)
[2021-04-01] MEDS: oxyCODONE/ACETAMINOPHEN (*CRX) 5-325 MG TABLET 1 TABLET PO ×2 (05:33→13:02)
[2021-04-01 08:03] LABS: Glucose Point of Care 277 mg/dl (65-105)
[2021-04-01] MEDS: lisinopriL 20 MG TABLET PO (08:32)
[2021-04-01] MEDS: ENOXAPARIN 40 MG/0.4 ML SYRINGE SUB-Q (08:32)
[2021-04-01] MEDS: INSULIN ASPART (*BKC) 100 UNITS/ML SUB-Q ×2 (08:33→17:03)
[2021-04-01] MEDS: INSULIN ASPART (*BKC) 100 UNITS/ML 10 UNITS SUB-Q ×2 (08:33→12:35)
[2021-04-01] MEDS: PERFLUTREN LIPID MICROSPHERES 1.5 ML VIAL DILUTED TO 10 ML TOTAL VOLUME IV PUSH (09:55)
[2021-04-01 11:34] LABS: Vancomycin Trough 12.4 ug/mL (10.0-20.0)
[2021-04-01 12:08] LABS: Glucose Point of Care 144 mg/dl (65-105)
--- NOTE | 2021-04-01 12:10 | WPDUROPN2 ---
Progress Note: A&P Assessment and Plan (1) Scrotal abscess: Code(s): N49.2 - Inflammatory disorders of scrotum Status: Acute Assessment and Plan: Wound packing change today. It was done without much difficulty. He states his fiancee is comfortable doing this at home. He can discharge home when medically stable with outpatient wound care by his fiancee. He should follow-up with urology in 2 weeks. I would recommend a 2 week course of Augmentin or Bactrim Subjective Subjective Date/Time Seen: 04/01/21 12:10 He is feeling improved. He is afebrile. Exam Const: General: cooperative, healthy appearing, alert and awake; No acute distress Nutritional Appearance: overweight HENMT: Head: normal to inspection Face and sinus: normal facial exam Eyes: General: appearance normal, both eyes and all related structures Neck: Neck: normal visual inspection Resp: Effort & Inspection: normal respiratory effort and able to speak in complete sentences : Other: Phallus is normal. Quesada catheter has been removed. He is circumcised. His scrotum is edematous. There is mild erythema. I removed his packing. I repacked the wound with quarter-inch Nu Gauze. There is no purulence. There is no clear granulation tissue as of yet. I am happy with the healing that has happened thus far. I do not feel any other drainable fluid collections Neuro: General: patient oriented x3 Extrem: General: normal to inspection Psych: Appearance: grossly normal Objective Data Vital Signs Vital Signs: Vital Signs - 24 hr 03/31/21 12:25 03/31/21 12:55 03/31/21 13:10 Temperature 99.2 F 98.9 F Pulse Rate 102 H 100 103 H Respiratory Rate 16 16 18 Blood Pressure 123/61 117/56 L 111/60 Pulse Oximetry 95 95 95 03/31/21 14:40 03/31/21 20:00 03/31/21 20:42 Temperature 99.6 F 98.2 F Pulse Rate 105 H 115 H Respiratory Rate 18 20 Blood Pressure 121/74 147/75 H Pulse Oximetry 94 95 95 03/31/21 23:54 04/01/21 04:00 Temperature 97.6 F 97.0 F L Pulse Rate 99 111 H Respiratory Rate 20 22 H Blood Pressure 123/75 169/91 H Pulse Oximetry 93 98 Intake/Output Intake/Output: Intake & Output 03/29/21 03/30/21 03/31/21 04/01/21 23:59 23:59 23:59 23:59 Intake Total 1050 4180 5050 520 Output Total 3775 1600 Balance 1050 4180 1275 -2104 Meds/Results Medications: Active Medications Generic Name Dose Route Start Last Admin Trade Name Freq PRN Reason Stop Dose Admin Dextrose 12.5 gm 03/30/21 11:56 Dextrose 50% 25 Gm/50 Ml Syringe IV PUSH PRN PRN Hypoglycemia Protocol Enoxaparin Sodium 40 mg 04/01/21 09:00 04/01/21 08:32 Enoxaparin 40 Mg/0.4 Ml Syringe SUB-Q 40 mg DAILY DENNIS Administration Ergocalciferol 50,000 unit 04/03/21 09:00 Ergocalciferol 50,000 Unit Capsule PO We@0900 DENNIS Glucagon 1 mg 03/30/21 11:56 Glucagon For Inj 1 Mg Vial IM PRN PRN Hypoglycemia Protocol Glucose 15 gm 03/30/21 11:56 Glucose Oral Gel 15 Gm Of Glucse In 37.5 Gm Tube PO PRN PRN Hypoglycemia Protocol Piperacillin/Tazobactam/Dextrose 3.375 gm in 50 mls @ 100 mls/hr 03/30/21 03:00 04/01/21 08:33 Zosyn 3.375 Gm/D5w 50ml Pm IVPB 100 mls/hr Q6H DENNIS Administration Dextrose 1,000 mls @ 100 mls/hr 03/30/21 11:56 Dextrose 5% 1,000 Ml IVPB PRN PRN Hypoglycemia Protocol Vancomycin HCl 1,750 mg in 500 mls @ 250 mls/hr 03/31/21 12:00 04/01/21 03:26 Vancomycin 1,750 Mg/D5w 500 Ml IVPB 250 mls/hr Q8H DENNIS Administration Ibuprofen 800 mg 03/30/21 14:09 Ibuprofen 400 Mg Tablet PO TID PRN Pain rated 1-3 Insulin Aspart 2 - 5 units 03/30/21 12:00 04/01/21 08:33 Insulin Aspart (*Bkc) 100 Units/Ml SUB-Q 3 units TIDWM DENNIS Administration Protocol Insulin Aspart 10 units 03/31/21 17:00 04/01/21 08:33 Insulin Aspart (*Bkc) 100 Units/Ml SUB-Q 10 units TIDWM DENNIS Administration Insulin Gla
[2021-04-01 14:00] VITALS: BP 145/82; PULSE 101; RESP 16; TEMP 36.5; O2SAT 98
--- NOTE | 2021-04-01 14:19 | PM.IMPN ---
Progress Note: A&P Assessment and Plan (1) Cellulitis of scrotum: Code(s): N49.2 - Inflammatory disorders of scrotum Status: Acute (2) Sepsis: Code(s): A41.9 - Sepsis, unspecified organism Status: Acute (3) Hypertension: Code(s): I10 - Essential (primary) hypertension Status: Acute (4) Diabetes mellitus with hyperglycemia: Code(s): E11.65 - Type 2 diabetes mellitus with hyperglycemia Status: Acute Additional Plan # Sepsis meets SIRS criteria with source of infection. Lactic acid normal. still intermittently tachycardic. # Scrotal cellulitis on vancomycin and Zosyn recently was on clindamycin as an outpatient basis now with evidence of scrotal abscess status post I and D by urology team appreciate the help Wound culture pending rare Gram-positive cocci. Will continue IV antibiotics for now switch to oral at discharge await culture report # Uncontrolled diabetes mellitus A1c 11 SSI Lantus start basal bolus regimen on metformin at home. Adjust insulin with Lantus increased to 28 units and prandial insulin to 10 units with meals. With uncontrolled diabetes suggest insulin regimen at discharge. Adjusting the dose. Nursing staff to teach insulin administration # murmur noted in it physical examination will get echocardiogram for further evaluation # Hypertension lisinopril at home # DVT prophylaxis Lovenox # Full code status Subjective Date/time seen: 04/01/21 14:19 Interval history: no overnight events, he got dressing changed this am. no fever, chills, sob, chest pain. Review of Systems Review of Systems: All systems reviewed & are unremarkable except as noted in HPI and below Exam Narrative: GENERAL: Well-appearing, well-nourished, and in no acute distress. HEAD: Normocephalic, atraumatic. EYES: PERRLA and EOMI. ENT: Nares clear, no rhinorrhea or epistaxis. Mucous membranes moist. NECK: Supple. nontender CHEST: Clear to auscultation. No respiratory distress. HEART: Regular rate and rhythm. Soft systolic murmur heard. Normal peripheral pulses. ABDOMEN: Soft, nontender, nondistended, normal active bowel sounds. : The scrotum is packed with scrotal support currently EXTREMITIES: Normal range of motion. No edema. SKIN: Warm, dry, no rash. NEURO: No focal deficits. Alert and oriented x3. PSYCH: Normal mood and affect. Objective Data Vital Signs Vital Signs: Vital Signs - 24 hr 03/31/21 14:40 03/31/21 20:00 03/31/21 20:42 Temperature 99.6 F 98.2 F Pulse Rate 105 H 115 H Respiratory Rate 18 20 Blood Pressure 121/74 147/75 H Pulse Oximetry 94 95 95 03/31/21 23:54 04/01/21 04:00 Temperature 97.6 F 97.0 F L Pulse Rate 99 111 H Respiratory Rate 20 22 H Blood Pressure 123/75 169/91 H Pulse Oximetry 93 98 Intake/Output Intake/Output: Intake & Output 03/29/21 03/30/21 03/31/21 04/01/21 23:59 23:59 23:59 23:59 Intake Total 1050 4180 5050 756 Output Total 3775 1600 Balance 1050 4180 1275 -844 Meds/Results Medications: Active Medications Generic Name Dose Route Start Last Admin Trade Name Freq PRN Reason Stop Dose Admin Dextrose 12.5 gm 03/30/21 11:56 Dextrose 50% 25 Gm/50 Ml Syringe IV PUSH PRN PRN Hypoglycemia Protocol Enoxaparin Sodium 40 mg 04/01/21 09:00 04/01/21 08:32 Enoxaparin 40 Mg/0.4 Ml Syringe SUB-Q 40 mg DAILY DENNIS Administration Ergocalciferol 50,000 unit 04/03/21 09:00 Ergocalciferol 50,000 Unit Capsule PO We@0900 DENNIS Glucagon 1 mg 03/30/21 11:56 Glucagon For Inj 1 Mg Vial IM PRN PRN Hypoglycemia Protocol Glucose 15 gm 03/30/21 11:56 Glucose Oral Gel 15 Gm Of Glucse In 37.5 Gm Tube PO PRN PRN Hypoglycemia Protocol Piperacillin/Tazobactam/Dextrose 3.375 gm in 50 mls @ 100 mls/hr 03/30/21 03:00 04/01/21 08:33 Zosyn 3.375 Gm/D5w 50ml Pm IVPB 100 mls/hr Q6H DENNIS Administration Dextrose 1,000 mls @ 100 mls/hr 03/30/21 11:5
[2021-04-01 16:35] LABS: Glucose Point of Care 206 mg/dl (65-105)
[2021-04-01] MEDS: INSULIN ASPART (*BKC) 100 UNITS/ML 12 UNITS SUB-Q (17:03)
[2021-04-01 20:47] VITALS: O2SAT 97
[2021-04-01] MEDS: INSULIN GLARGINE (*BKC) 100 UNITS/ML 32 UNITS SUB-Q (20:47)
[2021-04-01 21:26] LABS: Glucose Point of Care 172 mg/dl (65-105)
[2021-04-01 22:00] VITALS: BP 158/91; PULSE 100; RESP 18; TEMP 36.2; O2SAT 99
[2021-04-02] MEDS: oxyCODONE/ACETAMINOPHEN (*CRX) 5-325 MG TABLET 1 TABLET PO ×2 (00:07→05:41)
[2021-04-02 06:00] VITALS: BP 151/85; PULSE 99; RESP 18; TEMP 36.4; O2SAT 97
[2021-04-02 06:06] LABS: Basophils Absolute Auto 0.1 K/mm3 (0.0-0.1); Basophils Percent Auto 0.6 % (0.2-1.2); Eosinophils Absolute Auto 0.1 K/mm3 (0-0.3); Eosinophils Percent Auto 1.6 % (0-4.4); Hematocrit 36.8 % (42.0-52.0); Hemoglobin 12.6 g/dL (14.0-18.0); Immature Granulocyte Absolute 0.06 K/mm3 (0.00-0.031); Immature Granulocyte Percent A 0.7 % (0-0.5); Lymphocytes Absolute Auto 1.86 K/mm3 (0.9-3.2); Mean Corpuscular HGB Conc 34.2 g/dl (32-36); Mean Corpuscular Hemoglobin 31.3 pg (26-34); Mean Corpuscular Volume 91.5 fl (80-100); Mean Platelet Volume 9.3 fl (7.4-10.4); Monocytes Percent Auto 10.9 % (2.6-8.5); Neutrophils Absolute Auto 5.8 K/mm3 (1.3-6.7); Neutrophils Percent Auto 65.2 % (45.5-73.1); Platelet Count Result 288 k/mm3 (150-375); Red Blood Count 4.02 M/mm3 (4.6-6.20); Red Cell Distribution Width 12.4 % (11.5-14.5); White Blood Count 8.9 K/mm3 (4.5-10.0)
[2021-04-02 06:26] LABS: Anion Gap 11 mmol/L (8-16); Blood Urea Nitrogen 7 mg/dL (9-20); Carbon Dioxide 28 mmol/L (22-30); Chloride 100 mmol/L (98-107); Estimated CRCL calculation 142 ml/min; Estimated Glomerular Filt Rate > 60; Glucose 173 mg/dL (65-110); Potassium 3.6 mmol/L (3.4-5.0); Sodium 139 mmol/L (137-145)
[2021-04-02 07:50] LABS: Glucose Point of Care 194 mg/dl (65-105)
[2021-04-02 08:00] VITALS: BP 154/93; PULSE 91; RESP 18; TEMP 35.6; O2SAT 98
[2021-04-02] MEDS: lisinopriL 20 MG TABLET PO (08:48)
[2021-04-02] MEDS: ENOXAPARIN 40 MG/0.4 ML SYRINGE SUB-Q (08:48)
[2021-04-02] MEDS: INSULIN ASPART (*BKC) 100 UNITS/ML 12 UNITS SUB-Q ×2 (08:49→12:15)
[2021-04-02] MEDS: MORPHINE SULFATE (*CRX) 4 MG/ML INJ IV PUSH ×2 (08:49→15:45)
[2021-04-02 12:11] LABS: Glucose Point of Care 182 mg/dl (65-105)
[2021-04-02 13:23] LABS: Vancomycin Trough 18.2 ug/mL (10.0-20.0)
[2021-04-02] MEDS: polyethylene glycoL 3350 17 GM POWD.PACK PO (13:31)
[2021-04-02] MEDS: DOCUSATE SODIUM 100 MG CAPSULE PO ×2 (13:31→20:06)
[2021-04-02 14:00] VITALS: BP 160/88; PULSE 102; RESP 16; TEMP 36.2; O2SAT 97
--- NOTE | 2021-04-02 14:46 | PC.NURSE ---
On 04/02/21, the student, [Yeison Reynolds ], provided care and completed [facility] documentation on this patient. I have reviewed the student's documentation and agree with the findings.
--- NOTE | 2021-04-02 16:07 | PC.NURSE ---
Insulin teaching supplies at bedside, patient refused instruction. Patient stated he is familiar with giving insulin, my daughter is on insulin and my ex- was also on insulin and I've been to about 4 diabetic classes, I could probably teach one at this point.
--- NOTE | 2021-04-02 16:14 | WPDUROPN2 ---
Progress Note: A&P Assessment and Plan (1) Scrotal abscess: Code(s): N49.2 - Inflammatory disorders of scrotum Status: Acute Assessment and Plan: Scrotal I&D incision is draining, wound bed is pink and packing was replaced today without difficulty, patient tolerated well. A clean 4x4 was placed over incision. WIll continue packing daily and after discharge his girlfriend will continue to do it until packing is no longer able to fit inside his wound, he willl keep it clean and dry and continue antibiotics orally for two weeks. A f/u appt will need to be made for 2 weeks. Subjective Subjective Date/Time Seen: 04/02/21 16:14 He is feeling improved. He is afebrile. Requiring Morphine prior to dressing change for pain control. Review of Systems Cardiovascular: Cardiovascular: Denies chest pain Respiratory: Respiratory: Reports no additional respiratory complaints Genitourinary: Genitourinary: Denies hematuria, Reports genital pain, Denies dysuria and Denies flank pain Exam Resp: Effort & Inspection: normal respiratory effort Cardio: Rate: tachycardic GI: GI Palp: Yes Soft to palpation and No Tenderness to palpation present (GI) : Scrotum: scrotal swelling bilateral and other (I&D incision is draining purulence, Iodiform packing in place with 4x4 gauz) Extrem: General: no edema Objective Data Vital Signs Vital Signs: Vital Signs - 24 hr 04/01/21 20:47 04/01/21 22:00 04/02/21 06:00 Temperature 97.2 F L 97.5 F L Pulse Rate 100 99 Respiratory Rate 18 18 Blood Pressure 158/91 H 151/85 H Pulse Oximetry 97 99 97 04/02/21 08:00 04/02/21 14:00 Temperature 96.1 F L 97.2 F L Pulse Rate 91 102 H Respiratory Rate 18 16 Blood Pressure 154/93 H 160/88 H Pulse Oximetry 98 97 Intake/Output Intake/Output: Intake & Output 03/30/21 03/31/21 04/01/21 04/02/21 23:59 23:59 23:59 23:59 Intake Total 4180 5050 2696 2088 Output Total 3775 2350 Balance 4180 1718 080 9253 Meds/Results Medications: Active Medications Generic Name Dose Route Start Last Admin Trade Name Freq PRN Reason Stop Dose Admin Dextrose 12.5 gm 03/30/21 11:56 Dextrose 50% 25 Gm/50 Ml Syringe IV PUSH PRN PRN Hypoglycemia Protocol Docusate Sodium 100 mg 04/02/21 13:00 04/02/21 13:31 Docusate Sodium 100 Mg Capsule PO 100 mg Q12HR DENNIS Administration Enoxaparin Sodium 40 mg 04/01/21 09:00 04/02/21 08:48 Enoxaparin 40 Mg/0.4 Ml Syringe SUB-Q 40 mg DAILY DENNIS Administration Ergocalciferol 50,000 unit 04/03/21 09:00 Ergocalciferol 50,000 Unit Capsule PO We@0900 DENNIS Glucagon 1 mg 03/30/21 11:56 Glucagon For Inj 1 Mg Vial IM PRN PRN Hypoglycemia Protocol Glucose 15 gm 03/30/21 11:56 Glucose Oral Gel 15 Gm Of Glucse In 37.5 Gm Tube PO PRN PRN Hypoglycemia Protocol Piperacillin/Tazobactam/Dextrose 3.375 gm in 50 mls @ 100 mls/hr 03/30/21 03:00 04/02/21 14:59 Zosyn 3.375 Gm/D5w 50ml Pm IVPB 100 mls/hr Q6H DENNIS Administration Dextrose 1,000 mls @ 100 mls/hr 03/30/21 11:56 Dextrose 5% 1,000 Ml IVPB PRN PRN Hypoglycemia Protocol Vancomycin HCl 2,000 mg in 500 mls @ 250 mls/hr 04/01/21 13:00 04/02/21 15:46 Vancomycin 2,000 Mg/D5w 500 Ml IVPB 250 mls/hr Q8H DENNIS Administration Ibuprofen 800 mg 03/30/21 14:09 Ibuprofen 400 Mg Tablet PO TID PRN Pain rated 1-3 Insulin Aspart 2 - 5 units 03/30/21 12:00 04/02/21 12:15 Insulin Aspart (*Bkc) 100 Units/Ml SUB-Q Not Given TIDWM DENNIS Protocol Insulin Aspart 12 units 04/01/21 17:00 04/02/21 12:15 Insulin Aspart (*Bkc) 100 Units/Ml SUB-Q 12 units TIDWM DENNIS Administration Insulin Glargine 32 units 04/01/21 21:00 04/01/21 20:47 Insulin Glargine (*Bkc) 100 Units/Ml SUB-Q 32 units HS DENNIS Administration Lisinopril 20 mg 03/31/21 09:00 04/02/21 08:48 Lisinopril 20 Mg Tablet PO 20 mg DAILY
[2021-04-02 16:27] LABS: Glucose Point of Care 122 mg/dl (65-105)
--- NOTE | 2021-04-02 16:40 | PM.IMPN ---
Progress Note: A&P Assessment and Plan (1) Cellulitis of scrotum: Code(s): N49.2 - Inflammatory disorders of scrotum Status: Acute (2) Sepsis: Code(s): A41.9 - Sepsis, unspecified organism Status: Acute (3) Hypertension: Code(s): I10 - Essential (primary) hypertension Status: Acute (4) Diabetes mellitus with hyperglycemia: Code(s): E11.65 - Type 2 diabetes mellitus with hyperglycemia Status: Acute Additional Plan # Sepsis meets SIRS criteria with source of infection. Lactic acid normal. still intermittently tachycardic. # Scrotal cellulitis on vancomycin and Zosyn recently was on clindamycin as an outpatient basis now with evidence of scrotal abscess status post I and D by urology team appreciate the help Wound culture pending rare Gram-positive cocci. Will continue IV antibiotics for now switch to oral at discharge await culture report # Uncontrolled diabetes mellitus A1c 11 SSI Lantus start basal bolus regimen on metformin at home. Adjust insulin with Lantus increased to 28 units and prandial insulin to 10 units with meals. With uncontrolled diabetes suggest insulin regimen at discharge. Adjusting the dose. Nursing staff to teach insulin administration # murmur noted in it physical examination will get echocardiogram for further evaluation # Hypertension lisinopril at home # DVT prophylaxis Lovenox # Full code status 04/02 Interval history patient with scrotal abscess and cellulitis he just had a wound dressing change, and earlier today he walked in the corridor, the pain is persistent, he denies any fever, while in the hospital urology changing is dressing upon discharge his fiancee able to the dressing, wound is growing group B Streptococcus being treated with Zosyn will continue to monitor. Subjective Date/time seen: 04/02/21 16:40 Interval history: 04/02 Interval history patient with scrotal abscess and cellulitis he just had a wound dressing change, and earlier today he walked in the corridor, the pain is persistent, he denies any fever, while in the hospital urology changing is dressing upon discharge his fiancee able to the dressing, wound is growing group B Streptococcus being treated with Zosyn will continue to monitor. Review of Systems Review of Systems: All systems reviewed & are unremarkable except as noted in HPI and below Exam Narrative: morbidly obese Patient is comfortable, NAD HEENT: eyes are clear and none icteric LUNGS: normal respiratory effort ABD: distended Lower extremities: no edema SKIN: nonjaundiced Neuro: grossly intact. Objective Data Vital Signs Vital Signs: Vital Signs - 24 hr 04/01/21 20:47 04/01/21 22:00 04/02/21 06:00 Temperature 97.2 F L 97.5 F L Pulse Rate 100 99 Respiratory Rate 18 18 Blood Pressure 158/91 H 151/85 H Pulse Oximetry 97 99 97 04/02/21 08:00 04/02/21 14:00 Temperature 96.1 F L 97.2 F L Pulse Rate 91 102 H Respiratory Rate 18 16 Blood Pressure 154/93 H 160/88 H Pulse Oximetry 98 97 Intake/Output Intake/Output: Intake & Output 03/30/21 03/31/21 04/01/21 04/02/21 23:59 23:59 23:59 23:59 Intake Total 4180 5050 2696 2088 Output Total 3775 2350 Balance 4180 9826 503 6559 Meds/Results Medications: Active Medications Generic Name Dose Route Start Last Admin Trade Name Freq PRN Reason Stop Dose Admin Dextrose 12.5 gm 03/30/21 11:56 Dextrose 50% 25 Gm/50 Ml Syringe IV PUSH PRN PRN Hypoglycemia Protocol Docusate Sodium 100 mg 04/02/21 13:00 04/02/21 13:31 Docusate Sodium 100 Mg Capsule PO 100 mg Q12HR DENNIS Administration Enoxaparin Sodium 40 mg 04/01/21 09:00 04/02/21 08:48 Enoxaparin 40 Mg/0.4 Ml Syringe SUB-Q 40 mg DAILY DENNIS Administration Ergocalciferol 50,000 unit 04/03/21 09:00 Ergocalciferol 50,000 Unit Capsule PO We@0900 DENNIS Glucagon 1 mg 03/30/21 11:56 Glucagon For Inj 1 Mg Vial IM PRN PRN Hy
[2021-04-02 20:00] VITALS: PULSE 102; RESP 18; O2SAT 98
[2021-04-02 21:40] LABS: Glucose Point of Care 186 mg/dl (65-105)
[2021-04-02 22:00] VITALS: BP 174/85; PULSE 102; RESP 18; TEMP 36.5; O2SAT 98
[2021-04-02] MEDS: INSULIN GLARGINE (*BKC) 100 UNITS/ML 16 UNITS SUB-Q (23:51)
[2021-04-03] MEDS: oxyCODONE/ACETAMINOPHEN (*CRX) 5-325 MG TABLET 1 TABLET PO (02:39)
[2021-04-03 06:00] VITALS: BP 162/79; PULSE 101; RESP 16; TEMP 36.4; O2SAT 100
[2021-04-03 06:17] LABS: Estimated CRCL calculation 93 ml/min; Estimated Glomerular Filt Rate > 60
[2021-04-03 08:24] LABS: Glucose Point of Care 200 mg/dl (65-105)
[2021-04-03] MEDS: oxyCODONE/ACETAMINOPHEN (*CRX) 5-325 MG TABLET 2 TABLET PO (08:51)
[2021-04-03] MEDS: DOCUSATE SODIUM 100 MG CAPSULE PO (08:51)
[2021-04-03] MEDS: ERGOCALCIFEROL 50,000 UNIT CAPSULE 50000 UNITS PO (08:52)
[2021-04-03] MEDS: lisinopriL 20 MG TABLET PO (08:52)
[2021-04-03] MEDS: ENOXAPARIN 40 MG/0.4 ML SYRINGE SUB-Q (08:52)
[2021-04-03] MEDS: INSULIN ASPART (*BKC) 100 UNITS/ML 12 UNITS SUB-Q ×2 (08:59→12:47)
[2021-04-03 09:00] VITALS: O2SAT 100
--- NOTE | 2021-04-03 09:50 | OP_ITS ---
DATE OF PROCEDURE: 03/31/2021 PREOPERATIVE DIAGNOSES: Scrotal cellulitis and concern for scrotal abscess. POSTOPERATIVE DIAGNOSES: Scrotal cellulitis, scrotal abscess and urethral meatal stenosis. PROCEDURE PERFORMED: Incision and drainage of the scrotal abscess with placement of Quesada catheter. ANESTHESIA: General. INDICATION: The patient is a 45-year-old male presenting with evidence of scrotal cellulitis on examination. On initial evaluation, CT and ultrasound were negative for any gas or obvious abscess. The patient is a very poorly controlled diabetic. The patient was admitted on broad-septum antibiotics. On his repeat examination today, he was noted to have an area of fluctuance in the left inferior hemiscrotum with some change in the overlying skin color suggestive of a possible abscess. After discussion regarding treatment options, he would like to proceed with incision and drainage of the scrotal abscess. He understood the risk including, but not limited to bleeding infection, possible damage to the testicle or other associated structures. Possible need for further wound debridement and the risk of anesthesia. He understood and elected to proceed. DESCRIPTION OF PROCEDURE: The patient was correctly identified and informed consent was obtained. He was brought to the operating room and a formal timeout was performed. General anesthesia was induced. He already had received IV antibiotics. SCDs have placed in the bilateral lower extremities for DVT prophylaxis. He is placed in the frogleg position. His genitalia was prepped and draped in the sterile fashion. I initially attempted to place a 16-[place]ogolese Quesada to identify the urethra in order to avoid it during my incision and drainage; however, a 16-[place]ogolese Quesada would not pass. I could see that he had a mild urethral meatal stricture. I was able to easily pass a 14-[place]og[place]ese Quesada with return of clear urine. In the left inferior hemiscrotum, I could feel an area of fluctuance and some induration. Using a 15 blade, I made a vertical incision. There was an immediate return of about 50 cc of purulent fluid. Wound cultures were obtained. I opened the abscess cavity measuring about 2 cm in size, which was tracking inferiorly towards the perineum. The entirety of the cavity was opened. There is no further purulent discharge. The wound was copiously irrigated with a liter of normal saline. It did not appear to be any additional areas concerning for abscess. At this point, I packed the wound with half-inch iodoform gauze. Fluffs and mesh support were then applied. The patient was then awaken and taken to the recovery room in stable condition. Sponge and needle counts were correct. SPECIMEN: Wound culture for aerobic and anaerobic. ESTIMATED BLOOD LOSS: Less than 50 mL. IV FLUIDS: See anesthesia record. D I MT: Clare KUMAR
--- NOTE | 2021-04-03 10:33 | PM.DS ---
DS: Admitting Diagnosis Discharge Date 04/03/2021 Admitting Diagnosis Chief Complaint: Scrotal swelling DS: Discharge Diagnosis Discharge Diagnosis (1) Cellulitis of scrotum: Code(s): N49.2 - Inflammatory disorders of scrotum Status: Acute (2) Sepsis: Code(s): A41.9 - Sepsis, unspecified organism Status: Acute (3) Hypertension: Code(s): I10 - Essential (primary) hypertension Status: Acute (4) Diabetes mellitus with hyperglycemia: Code(s): E11.65 - Type 2 diabetes mellitus with hyperglycemia Status: Acute DS: Summary Hospital Course Reason for hospitalization: Chief Complaint: Scrotal swelling Narrative: Patient 45-year-old gentleman who presents the emergency department with chief complaint of scrotal pain and swelling. Patient reports he is a poorly controlled diabetic and has not been taking his Metformin due to it causing pancreatitis. The patient states that about a week ago he started having pain and swelling in the left side of his scrotum. The patient states he noticed there was a small knot in the area and talked to his primary care physician who started him on oral clindamycin patient states that as this has been treated and is continued to increase in swelling has become a more red tender and swollen the patient states that now his scrotum is significantly swollen to about the size of a grapefruit. The patient states that it is exquisitely painful denies crepitance denies the area turning black or necrotic he does report that there is an ulceration present on the left side. he reports the pain is not present on the right side of his scrotum. No fever chills Hospital Course: # Sepsis meets SIRS criteria with source of infection. Lactic acid normal. still intermittently tachycardic. # Scrotal cellulitis on vancomycin and Zosyn recently was on clindamycin as an outpatient basis now with evidence of scrotal abscess status post I and D by urology team appreciate the help Wound culture pending rare Gram-positive cocci. Will continue IV antibiotics for now switch to oral at discharge await culture report # Uncontrolled diabetes mellitus A1c 11 SSI Lantus start basal bolus regimen on metformin at home. Adjust insulin with Lantus increased to 28 units and prandial insulin to 10 units with meals. With uncontrolled diabetes suggest insulin regimen at discharge. Adjusting the dose. Nursing staff to teach insulin administration # murmur noted in it physical examination will get echocardiogram for further evaluation # Hypertension lisinopril at home # DVT prophylaxis Lovenox # Full code status 04/02 Interval history patient with scrotal abscess and cellulitis he just had a wound dressing change, and earlier today he walked in the corridor, the pain is persistent, he denies any fever, while in the hospital urology changing is dressing upon discharge his greg able to the dressing, wound is growing group B Streptococcus being treated with Zosyn will continue to monitor. today patient said again he walked around the corridor pain is persisting but tolerable, discussed with Urology will do the dressing change today and discharge the patient today on oral antibiotic, patient with uncontrolled diabetes will continue his hospital regimen of insulin with short-acting and Lantus and patient is familiar with insulins management his daughter and alissa are also can help him with his diabetes insulin, his greg will change the dressing at home, patient is clinically stable will discharge him today. Status at Discharge Functional status at discharge: independent ambulation Overall status at discharge: patient is back to baseline Time Spent with Patient Time attestation: Total time spent providing and/or coordinating discharge services: Patient was seen and examined at the time of the discharge Condition at discharge is stable Code status: Full code. Time spent preparing discharge summary, disch
[2021-04-03 11:40] LABS: Glucose Point of Care 151 mg/dl (65-105)
--- NOTE | 2021-04-03 12:09 | WPDUROPN2 ---
Progress Note: A&P Assessment and Plan (1) Scrotal abscess: Code(s): N49.2 - Inflammatory disorders of scrotum Status: Acute Assessment and Plan: Continue packing and dressing changes daily. His girlfriend will do them at home. He will f/u in two weeks and take Augmentin at home for 2 weeks. Patient tolerating pain well with Oxycodone. Ok to discharge home at any time. Subjective Subjective Date/Time Seen: 04/03/21 12:09 He is feeling improved. He is afebrile. Tolerated dressing change with Oxycodone today. Review of Systems Cardiovascular: Cardiovascular: Denies chest pain Respiratory: Respiratory: Reports no additional respiratory complaints Gastrointestinal: Gastrointestinal: Denies abdominal pain, Denies nausea and Denies vomiting Genitourinary: Genitourinary: Denies hematuria, Reports genital pain, Reports scrotal swelling and Denies urinary urgency Exam Resp: Effort & Inspection: normal respiratory effort Cardio: Rate: regular rate GI: GI Palp: Yes Soft to palpation and No Tenderness to palpation present (GI) : Scrotum: scrotal swelling (tender and red on exam, moderate edema, scrotal incision is pink, packing) Extrem: General: no edema Objective Data Vital Signs Vital Signs: Vital Signs - 24 hr 04/02/21 14:00 04/02/21 20:00 04/02/21 22:00 Temperature 97.2 F L 97.7 F Pulse Rate 102 H 102 H 102 H Respiratory Rate 16 18 18 Blood Pressure 160/88 H 174/85 H Pulse Oximetry 97 98 98 04/03/21 06:00 04/03/21 09:00 Temperature 97.6 F Pulse Rate 101 H Respiratory Rate 16 Blood Pressure 162/79 H Pulse Oximetry 100 100 Intake/Output Intake/Output: Intake & Output 03/31/21 04/01/21 04/02/21 04/03/21 23:59 23:59 23:59 23:59 Intake Total 5050 3196 3438 786 Output Total 9783 3980 Balance 1469 173 4790 786 Meds/Results Medications: Active Medications Generic Name Dose Route Start Last Admin Trade Name Freq PRN Reason Stop Dose Admin Dextrose 12.5 gm 03/30/21 11:56 Dextrose 50% 25 Gm/50 Ml Syringe IV PUSH PRN PRN Hypoglycemia Protocol Docusate Sodium 100 mg 04/02/21 13:00 04/03/21 08:51 Docusate Sodium 100 Mg Capsule PO 100 mg Q12HR DENNIS Administration Enoxaparin Sodium 40 mg 04/01/21 09:00 04/03/21 08:52 Enoxaparin 40 Mg/0.4 Ml Syringe SUB-Q 40 mg DAILY DENNIS Administration Ergocalciferol 50,000 unit 04/03/21 09:00 04/03/21 08:52 Ergocalciferol 50,000 Unit Capsule PO 50,000 unit We@0900 DENNIS Administration Glucagon 1 mg 03/30/21 11:56 Glucagon For Inj 1 Mg Vial IM PRN PRN Hypoglycemia Protocol Glucose 15 gm 03/30/21 11:56 Glucose Oral Gel 15 Gm Of Glucse In 37.5 Gm Tube PO PRN PRN Hypoglycemia Protocol Piperacillin/Tazobactam/Dextrose 3.375 gm in 50 mls @ 100 mls/hr 03/30/21 03:00 04/03/21 08:48 Zosyn 3.375 Gm/D5w 50ml Pm IVPB Not Given Q6H DENNIS Dextrose 1,000 mls @ 100 mls/hr 03/30/21 11:56 Dextrose 5% 1,000 Ml IVPB PRN PRN Hypoglycemia Protocol Vancomycin HCl 2,000 mg in 500 mls @ 250 mls/hr 04/01/21 13:00 04/03/21 08:47 Vancomycin 2,000 Mg/D5w 500 Ml IVPB Not Given Q8H DENNIS Ibuprofen 800 mg 03/30/21 14:09 Ibuprofen 400 Mg Tablet PO TID PRN Pain rated 1-3 Insulin Aspart 2 - 5 units 03/30/21 12:00 04/03/21 11:44 Insulin Aspart (*Bkc) 100 Units/Ml SUB-Q Not Given TIDWM [facility] Protocol Insulin Aspart 12 units 04/01/21 17:00 04/03/21 08:59 Insulin Aspart (*Bkc) 100 Units/Ml SUB-Q 12 units TIDWM DENNIS Administration Insulin Glargine 32 units 04/01/21 21:00 04/02/21 23:49 Insulin Glargine (*Bkc) 100 Units/Ml SUB-Q Not Given HS [facility] Lisinopril 20 mg 03/31/21 09:00 04/03/21 08:52 Lisinopril 20 Mg Tablet PO 20 mg DAILY DENNIS Administration Ondansetron HCl 4 mg 03/30/21 04:12 Ondansetron Inj 4 Mg/2 Ml Vial IV PUSH Q4H PRN Nausea Oxycodon
== END 2021-04-03 13:23 | disposition home or self-care (01) | DRG 720 ==
LOC: ANHED 03-30 04:36 → ANH3MEDSUR 03-30 06:45
PROVIDERS: Internal Medicine; Urology; Admitting Provider Internal Medicine; Emergency Provider Emergency Medicine; PCP Family Medicine; Visit Provider Family Medicine
PROC: 0V950ZX Drainage of Scrotum, Open Approach, Diagnostic (ICD-10-PCS; CPT 54700; principal; 2021-03-31 11:00)
DX: A41.9 Sepsis, unspecified organism (principal); N49.2 Inflammatory disorders of scrotum; B95.1 Streptococcus, group B, as the cause of diseases classified elsewhere; N35.111 Postinfective urethral stricture, not elsewhere classified, male, meatal; I10 Essential (primary) hypertension; E11.65 Type 2 diabetes mellitus with hyperglycemia; E11.43 Type 2 diabetes mellitus with diabetic autonomic (poly)neuropathy; K31.84 Gastroparesis; F17.210 Nicotine dependence, cigarettes, uncomplicated; E66.01 Morbid (severe) obesity due to excess calories; Z68.35 Body mass index [BMI] 35.0-35.9, adult; E78.5 Hyperlipidemia, unspecified
CPT/HCPCS: 36415; 74177; 76870; 80048; 80053; 80202; 81001; 82565; 82948; 83036; 83605; 83735; 85025; 85027; 85610; 85730; 86140; 87040; 87070; 87075; 87077; 87205; 87491; 87591; 93976; 96365; 96366; 96367; 96375; 99285; A9270; C8929; J0330; J1650; J1815; J2250; J2270; J2405; J2543; J2704; J2765; J3370; J7030; Q9957; Q9967

== ENCOUNTER 2021-06-03 12:12 | Emergency (ER) | payer BC, SELFPAY ==
--- NOTE | ~2021-06-03 | XR_ITS ---
EXAMINATION: XR shoulder RT min 2V EXAM DATE: 06/03/2021 13:42 INDICATION: Pain upon waking up this morning. TECHNIQUE: The following right shoulder projections obtained: frontal projection with internal rotati on, frontal projection with external rotation, Grashey, and axillary (4+ views). There is no prior s tudy for comparison. FINDINGS: No evidence of right shoulder rotator cuff calcific tendinosis. There is no glenohumeral joint, mild acromioclavicular joint primary osteoarthritis. There are no acute fractures or dislocat ions identified. There is no subcutaneous gas. The soft tissue is unremarkable. There are no radi opaque foreign bodies. IMPRESSION: Mild right acromioclavicular joint osteoarthritis. Reviewed, dictated and finalized at location B. RMATION DELIVERY ANALYST
[2021-06-03 12:33] VITALS: BP 194/122; PULSE 106; RESP 16; TEMP 37.1; O2SAT 98
[2021-06-03 14:58] VITALS: BP 175/100; PULSE 108; RESP 17; O2SAT 97
--- NOTE | 2021-06-03 15:31 | ED.GENADULT ---
HPI - General Adult General Chief complaint: Extremity Injury, Upper Stated complaint: shoulder pain Time Seen by Provider: 06/03/21 13:33 Source: patient Mode of arrival: ambulatory Limitations: no limitations History of Present Illness HPI narrative: Patient is a 45-year-old male with chief complaint of right shoulder sprain over the past 3 days. He states he was evaluated and managed by Orthopedics months ago for a rotator cuff sprain and he was given injection into the joint, steroids and ibuprofen and his discomfort resolved. He states he woke up 3 days ago to pain in the shoulder and has been taking ibuprofen with out remittance of his symptoms. He reports ROM intact but uncomfortable. Patient has hypertension and diabetes Related Data Home Medications Medication Instructions Recorded Confirmed insulin glargine [Lantus U-100 SUBCUT 06/03/21 Insulin] insulin lispro 06/03/21 lisinopril 06/03/21 Allergies Allergy/AdvReac Type Severity Reaction Status Date / Time [place] Pepper Allergy Unknown FACE RED Uncoded 03/30/21 05:44 AND SWELLS AND ITCHY SKIN Review of Systems Review of Systems: CONSTITUTIONAL: Denies fever, chills, or sweats. EYES: Denies visual changes, redness, or discharge. ENT: Denies rhinorrhea, congestion, sore throat, or otalgia. CARDIOVASCULAR: Denies chest pain, palpitations, or edema. RESPIRATORY: Denies cough or dyspnea. GASTROINTESTINAL: Denies abdominal pain, nausea, vomiting, or diarrhea. GENITOURINARY: Denies dysuria or hematuria. SKIN: Denies rash or itching. MUSCULOSKELETAL: Reports right shoulder pain denies back pain, joint pain, or myalgia. NEUROLOGIC: Denies headache, numbness, dizziness, or weakness. PSYCHIATRIC: Denies anxiety or depression. [facility] Past Medical History Medical History (Updated 06/03/21 @ 14:43 by Suzanna Patel PA-C) HLD (hyperlipidemia) Family History Family History Mother Cancer of stomach Other Hypertension Lupus Social History Social History Years smoked: 35 Smoking status: Light tobacco smoker Tobacco type: cigarettes Alcohol intake: former Substance use: current Substance use type: marijuana Spiritual care concerns: No Exam Narrative: GENERAL: Well-appearing, well-nourished, and in no acute distress. HEAD: Normocephalic, atraumatic. EYES: PERRLA and EOMI. EXTREMITIES: Normal range of motion-uncomfortable. No edema. No erythema. Electronic Sales And Service Technician strength intact. Sensation intact. SKIN: Warm, dry, no rash. NEURO: No focal deficits. Alert and oriented x3. PSYCH: Normal mood and affect. Course Vital Signs Vital signs: Vital Signs Temperature 98.7 F 06/03/21 12:33 Pulse Rate 106 H 06/03/21 12:33 Respiratory Rate 16 06/03/21 12:33 Blood Pressure 194/122 H 06/03/21 12:33 Pulse Oximetry 98 06/03/21 12:33 Temperature 98.7 F 06/03/21 12:33 Pulse Rate 108 H 06/03/21 14:58 Respiratory Rate 17 06/03/21 14:58 Blood Pressure 175/100 H 06/03/21 14:58 Pulse Oximetry 97 06/03/21 14:58 Medical Decision Making MDM Narrative Medical decision making narrative: No fracture noted. Patient has diabetes so we will attempt fluids told him also relaxers initially. Patient was to follow-up with his primary care crime scene specialist for further evaluation and management of his symptoms. Patient's blood pressure it was found to be elevated on his visit today. Patient states he has not been taking his lisinopril as instructed. Patient has been off her blood pressure medication in emergency department states her lower reading. Patient refuses and states that he will take his medications when he gets home. Patient denies any headache, change in vision or hearing or other neurological deficits. Patient was informed of the risks of elevated blood pressures including but not limited t
== END 2021-06-03 15:00 | disposition home or self-care (01) ==
PROVIDERS: Emergency Provider Emergency Medicine; PCP Family Medicine
DX: S43.401A Unspecified sprain of right shoulder joint, initial encounter (principal); T46.4X6A Underdosing of angiotensin-converting-enzyme inhibitors, initial encounter; I10 Essential (primary) hypertension; E11.9 Type 2 diabetes mellitus without complications; E78.5 Hyperlipidemia, unspecified; Z79.4 Long term (current) use of insulin; F17.210 Nicotine dependence, cigarettes, uncomplicated; X58.XXXA Exposure to other specified factors, initial encounter
CPT/HCPCS: 73030; 99283

== ENCOUNTER 2021-11-01 10:03 | Outpatient (CLI) | payer BC, SELFPAY ==
--- NOTE | 2021-11-01 11:45 | NEURO_ITS ---
Impression: # Complains of pain in right upper extremity. # No Carpal Tunnel Syndrome. # Early right ulnar neuropathy. # Higher stimulation required to obtain responses; Possibility of higher involvement needs to be ruled out. Nerve Conduction Studies Anti Sensory Summary Table Stim Site NR Peak (ms) P-T Amp (?V) Site1 Site2 Delta-P (ms) Dist (cm) Carmelo (m/s) Right Median Anti Sensory (2-3nd Digit) Wrist 3.6 14.0 Wrist 2-3nd Digit 3.6 14.0 39 Wrist 3.5 9.3 Wrist 2-3nd Digit 3.6 14.0 39 Right Radial Anti Sensory (Base 1st Digit) Wrist 3.0 12.6 Wrist Base 1st Digit 3.0 0.0 Right Ulnar Anti Sensory (5th Digit) Wrist 2.6 14.7 Wrist 5th Digit 2.6 14.0 54 Motor Summary Table Stim Site NR Onset (ms) O-P Amp (mV) Site1 Site2 Delta-0 (ms) Dist (cm) Carmelo (m/s) Right Median Motor (Abd Poll Brev) Wrist 3.8 2.6 Elbow Wrist 5.7 28.0 49 Elbow 9.5 1.0 Right Ulnar Motor (Abd Dig Minimi) Wrist 3.4 5.1 A Elbow Wrist 6.1 29.0 48 A Elbow 9.5 4.9 B Elbow Wrist 4.3 20.0 47 B Elbow 7.7 2.7 F Wave Studies NR F-Lat (ms) L-R F-Lat (ms) Right Median (Mrkrs) (Abd Poll Brev) 33.36 Right Ulnar (Mrkrs) (Abd Dig Min) 32.83 EMG Side Muscle Nerve Root Ins Act Fibs Amp Dur Recrt Comment Right 1stDorInt Ulnar C8-T1 Nml Nml Nml Nml Nml Right Ext Indicis Radial (Post Int) C7-8 Nml Nml Nml Nml Nml Right Ext Digitorum Radial (Post Int) C7-8 Nml Nml Nml Nml Nml Right BrachioRad Radial C5-6 Nml Nml Nml Nml Nml Right PronatorTeres Median C6-7 Nml Nml Nml Nml Nml Right Abd Poll Brev Median C8-T1 Nml Nml Nml Nml Nml Right ABD Dig Min Ulnar C8-T1 Nml Nml Nml Nml Nml Right Biceps Musculocut C5-6 Nml Nml Nml Nml Nml Right Triceps Radial C6-7-8 Nml Nml Nml Nml Nml Right Deltoid Axillary C5-6 Nml Nml Nml Nml Nml MTDD
== END 2021-11-01 10:04 | disposition home or self-care (01) ==
LOC: ANHNEURO 10:04
PROVIDERS: PCP Family Medicine
DX: R20.2 Paresthesia of skin (principal); G56.21 Lesion of ulnar nerve, right upper limb
CPT/HCPCS: 95886; 95909

== ENCOUNTER 2022-10-10 19:53 | Emergency (ER) | payer BC, SELFPAY ==
[2022-10-10] VITALS (8 sets, daily range): BP systolic 136–160; BP diastolic 80–92; PULSE 85–99; RESP 14–18; TEMP 36.4; O2SAT 96–100
--- NOTE | ~2022-10-10 | XR_ITS ---
EXAMINATION: XR chest 2V Exam Date/Time: 10/10/2022 19:50 CDT HISTORY: chest pressure, SOB Comparison: None available. RESULT: Lines, tubes, and devices: None. Lungs and pleura: Diffuse reticulonodular opacities. Cardiomediastinal silhouette: Normal. Other: No acute osseous or upper abdominal finding. IMPRESSION: Pulmonary opacities may represent bronchiolitis, as can be seen with atypical infection, asthma, aspi ration, and small airways disease. Reviewed, dictated and finalized at location K. IMPRESSION: Pulmonary opacities may represent bronchiolitis, as can be seen with atypical i nfection, asthma, aspiration, and small airways disease.
--- NOTE | 2022-10-10 19:54 | ECG_ITS ---
Measurements Intervals [place] Rate: 89 P: 49 [place]: 152 QRS: 79 QRSD: 86 T: 48 QT: 358 QTc: 436 Interpretive Statements SINUS RHYTHM BORDERLINE R WAVE PROGRESSION, ANTERIOR LEADS BORDERLINE ECG NO PREVIOUS ECG AVAILABLE FOR COMPARISON Electronically Signed On 10-10-2022 21:20:05 CDT by Александр De Jesus D.O.
[2022-10-10 20:25] LABS: Basophils Percent Auto 0.6 % (0.2-1.2); Eosinophils Absolute Auto 0.1 K/mm3 (0-0.3); Eosinophils Percent Auto 1.7 % (0-4.4); Hematocrit 35.8 % (42.0-52.0); Hemoglobin 12.2 g/dL (14.0-18.0); Immature Granulocyte Absolute 0.03 K/mm3 (0.00-0.031); Immature Granulocyte Percent A 0.4 % (0-0.5); Lymphocytes Absolute Auto 1.52 K/mm3 (0.9-3.2); Lymphocytes Percent Auto 21.3 % (18.3-44.2); Mean Corpuscular HGB Conc 34.1 g/dl (32-36); Mean Corpuscular Hemoglobin 31.4 pg (26-34); Mean Platelet Volume 10.2 fl (7.4-10.4); Monocytes Absolute Auto 0.5 K/mm3 (0.1-0.6); Monocytes Percent Auto 6.9 % (2.6-8.5); Neutrophils Absolute Auto 4.9 K/mm3 (1.3-6.7); Neutrophils Percent Auto 69.1 % (45.5-73.1); Platelet Count Result 199 k/mm3 (150-375); Red Blood Count 3.89 M/mm3 (4.6-6.20); Red Cell Distribution Width 13.3 % (11.5-14.5); White Blood Count 7.1 K/mm3 (4.5-10.0)
[2022-10-10] MEDS: ASPIRIN 81 MG CHEWABLE TABLET 324 MG PO (20:29)
[2022-10-10 20:37] LABS: Alanine Aminotransferase 23 U/L (6-50); Albumin Level 4.1 g/dL (3.5-5.1); Alkaline Phosphatase 107 U/L (38-126); Anion Gap 9 mmol/L (8-16); Aspartate Amino Transferase 23 U/L (17-59); Bilirubin,Total 0.8 mg/dL (0.2-1.3); Blood Urea Nitrogen 31 mg/dL (9-20); Calcium 8.9 mg/dL (8.4-10.2); Carbon Dioxide 26 mmol/L (22-30); Chloride 102 mmol/L (98-107); Estimated CRCL calculation 128 ml/min; Estimated Glomerular Filt Rate > 60; Glucose 229 mg/dL (65-110); Lipase 37 U/L (23-300); Potassium 3.9 mmol/L (3.4-5.0); Prothrombin Time 13.5 Seconds (11.1-14.7); Sodium 137 mmol/L (137-145)
--- NOTE | 2022-10-10 20:37 | ED.GENADULT ---
HPI - General Adult General Chief complaint: Chest Pain Stated complaint: intermittent chest pressure, SOB Time Seen by Provider: 10/10/22 20:24 History of Present Illness HPI narrative: Patient 47-year-old gentleman who presents the emergency department with chief complaint of shortness of breath and chest discomfort. Patient reports that today he started having discomfort in his chest feels like a heaviness or tightness. The patient reports that he has noticed over the last several days he been having peripheral edema that is been increasing. Patient reports that he has used his inhaler today without improvement does report that he has history of diabetes hypertension high cholesterol. Related Data Home Medications Medication Instructions Recorded Confirmed insulin glargine 100 unit/mL subcut 06/03/21 subcutaneous solution (Lantus U-100 Insulin) insulin lispro 100 unit/mL 06/03/21 subcutaneous solution lisinopril 20 mg tablet 06/03/21 Allergies Allergy/AdvReac Type Severity Reaction Status Date / Time [place] Pepper Allergy Unknown FACE RED Uncoded 03/30/21 05:44 AND SWELLS AND ITCHY SKIN Review of Systems Review of Systems: A 10 system review of systems was completed on the patient and is negative except for what is stated in the HPI. Nursing and ancillary documentation was reviewed. PMFSH Past Medical History Medical History HLD (hyperlipidemia) Family History Family History Mother Cancer of stomach Other Hypertension Lupus Social History Social History Years smoked: 35 Smoking status: Light tobacco smoker Tobacco type: cigarettes Alcohol intake: former Substance use: current Substance use type: marijuana Spiritual care concerns: No Exam Narrative: GENERAL: Well-appearing, well-nourished, and in no acute distress. HEAD: Normocephalic, atraumatic. EYES: PERRLA and EOMI. ENT: Nares clear, no rhinorrhea or epistaxis. Mucous membranes moist. NECK: Supple. CHEST: Clear to auscultation. No respiratory distress. HEART: Regular rate and rhythm. No murmur heard. Normal peripheral pulses. ABDOMEN: Soft, nontender, nondistended, normal active bowel sounds. EXTREMITIES: Normal range of motion. +1 edema. SKIN: Warm, dry, no rash. NEURO: No focal deficits. Alert and oriented x3. PSYCH: Normal mood and affect. Course Vital Signs Vital signs: Vital Signs Temperature 36.4 C L 10/10/22 20:14 Pulse Rate 96 10/10/22 20:14 Respiratory Rate 18 10/10/22 20:14 Blood Pressure 138/81 10/10/22 20:14 Pulse Oximetry 97 10/10/22 20:14 Oxygen Delivery Room Air 10/10/22 20:14 Temperature 36.4 C 10/10/22 20:21 Pulse Rate 85 10/10/22 22:31 Respiratory Rate 15 10/10/22 22:31 Blood Pressure 136/80 10/10/22 22:31 Pulse Oximetry 98 10/10/22 22:31 Oxygen Delivery Room Air 10/10/22 20:34 Medical Decision Making MDM Narrative Medical decision making narrative: Differential diagnosis includes ACS, CHF, pneumonia, asthma exacerbation, pneumothorax, Chest x-ray showed no widened mediastinum no evidence of pneumothorax. There was findings consistent with either asthma or small airway disease. Laboratory studies were obtained which showed a negative BNP troponin was negative for 2 sets CBC was within normal limits EKG was obtained which showed sinus rhythm rate of [address] elevation or ST depression Patient is pain-free at this time patient will be discharged home to follow-up with his primary care provider Vital Signs Vital Signs: Vital Signs Temperature 36.4 C L 10/10/22 20:14 Pulse Rate 96 10/10/22 20:14 Respiratory Rate 18 10/10/22 20:14 Blood Pressure 138/81 10/10/22 20:14 Pulse Oximetry 97 10/10/22
[2022-10-10 20:38] LABS: Partial Thromboplastin Time 27.7 SECONDS (22.3-36.8)
[2022-10-10 20:49] LABS: Troponin I < 0.012 ng/mL (0.000-0.034)
[2022-10-10 21:30] LABS: NT Pro B Type Natriuretic Pept 81 pg/mL (19.9-100)
[2022-10-10] MEDS: IBUPROFEN 400 MG TABLET 800 MG PO (22:57)
[2022-10-10] MEDS: GABAPENTIN 400 MG CAPSULE PO (23:02)
[2022-10-11] LABS: Troponin I < 0.012 ng/mL (0.000-0.034)
[2022-10-11 00:30] VITALS: BP 150/91; PULSE 95; RESP 18; TEMP 36.6; O2SAT 99
== END 2022-10-11 00:31 | disposition home or self-care (01) ==
PROVIDERS: Emergency Provider Emergency Medicine; PCP Family Medicine
DX: R07.89 Other chest pain (principal); E78.5 Hyperlipidemia, unspecified; Z79.4 Long term (current) use of insulin; F17.210 Nicotine dependence, cigarettes, uncomplicated; R94.31 Abnormal electrocardiogram [ECG] [EKG]
CPT/HCPCS: 36415; 71046; 80053; 83690; 83880; 84484; 85025; 85610; 85730; 93005; 99284; A9270

== ENCOUNTER 2023-08-27 18:25 | Inpatient (IN) | payer SELFPAY ==
[2023-08-27] VITALS (7 sets, daily range): BP systolic 132–157; BP diastolic 79–83; PULSE 94–105; RESP 11–21; TEMP 36.6; O2SAT 88–99
--- NOTE | ~2023-08-27 | CT_ITS ---
EXAMINATION: CTA chest PE abdomen pel DATE: 08/27/2023 22:27 INDICATION: Shortness of breath TECHNIQUE: Computed tomography angiography (CTA) of the chest was performed with 100 mL Omnipaque-350 intravenous contrast timed to evaluate the pulmonary arteries. Subsequent postcontrast images of the abdomen and pelvis are obtained. Coronal maximum intensity projection 3D-reconstructions were create d by the technologist. The dose-length product (DLP) was 2606.24 mGy-cm. Automated exposure control a nd iterative reconstruction technique were employed. COMPARISON: 03/30/2021 FINDINGS: CTA CHEST: The pulmonary arteries are well-opacified. No pulmonary embolism is identified. There are small pleural effusions. There are subpleural airspace opacities. There is smooth interlobular septal thickening with a lower lung zone distribution. There is no pneumothorax. The heart size is normal. There is mild mediastinal and bilateral hilar lymphadenopathy. The heart size is normal. ABDOMEN/PELVIS CT: The liver, pancreas, gallbladder, and adrenal glands are normal. Splenomegaly is n oted. Nonobstructing stones of the right kidney measure up to 2 mm. There is a [address] one of the left kidney. No pathologically enlarged abdominal or pelvic lymph nodes are identified. No free intraperitoneal gas or evidence of bowel obstruction. Colonic diverticulosis is present without evidence of diverticulitis. IMPRESSION: 1. No pulmonary embolism identified. 2. Small pleural effusions. 3. Mild pulmonary edema. 4. Bilateral nonobstructing nephrolithiasis. 5. Splenomegaly. 6. Mild mediastinal and bilateral hilar lymphadenopathy, likely reactive. Reviewed, dictated and finalized at location F.
--- NOTE | ~2023-08-27 | US_ITS ---
EXAMINATION: US venous doppler [facility] DATE: 08/27/2023 19:23 INDICATION: Bilateral lower limb swelling TECHNIQUE: Mcgee scale images without and with compression and Doppler images of the bilateral lower e xtremity veins were obtained. COMPARISON: None FINDINGS: The right common femoral vein, profunda femoral vein, femoral vein, popliteal vein, peroneal trunk, p osterior tibial veins, and greater saphenous vein are patent. The left common femoral vein, profunda femoral vein, popliteal vein, and greater saphenous vein are p atent. The left femoral, posterior tibial, and peroneal veins are not well evaluated due to body habi tus and edema. IMPRESSION: 1. Patent bilateral lower extremity veins with incomplete clearing evaluation of the left femoral, le ft posterior tibial, and left peroneal veins due to body habitus and edema. No evidence of deep venou s thrombosis. Reviewed, dictated and finalized at location F. IMPRESSION: 1. Patent bilateral lower extremity veins with incomplete clearing evaluation o f the left femoral, left posterior tibial, and left peroneal veins due to body habitus and edema. No evidence of deep venous thrombosis.
--- NOTE | ~2023-08-27 | XR_ITS ---
EXAMINATION: XR chest 2V DATE: 08/27/2023 19:10 INDICATION: Shortness of breath TECHNIQUE: Frontal and lateral views of the chest are obtained COMPARISON: 10/10/2022 FINDINGS: There is a mild diffuse interstitial pattern. There are small pleural effusions. No pneumot horax is identified. The cardiomediastinal silhouette is normal. There is mild thoracic spondylosis. IMPRESSION: 1. Mild pulmonary edema. 2. Small pleural effusions. Reviewed, dictated and finalized at location F.
--- NOTE | 2023-08-27 18:34 | ECG_ITS ---
Measurements Intervals [place] Rate: 105 P: 52 MO: 158 QRS: -27 QRSD: 146 T: 118 QT: 378 QTc: 501 Interpretive Statements SINUS TACHYCARDIA POSSIBLE LEFT ATRIAL ENLARGEMENT LEFT BUNDLE BRANCH BLOCK BASELINE ARTIFACT- I, II, III, AVR, V5-V6 ABNORMAL ECG COMPARED TO ECG 10/10/2022 19:58:01 SINUS TACHYCARDIA NOW PRESENT LEFT BUNDLE-BRANCH BLOCK NOW PRESENT Electronically Signed On 08-28-2023 13:49:44 CDT by Александр De Jesus D.O.
--- NOTE | 2023-08-27 18:34 | ED.SOB ---
HPI - SOB/Dyspnea General Chief Complaint: Shortness of Breath/Dyspnea <BRIAN Kaufman Last Filed: 08/27/23 18:46> Stated Complaint: SHORTNESS OF BREATH,MULT C/O <BRIAN Kaufman Last Filed: 08/27/23 18:46> Time Seen by Provider: 08/27/23 18:34 <BRIAN Kaufman Last Filed: 08/27/23 18:46> Focused HPI: Patient is a 48 y/o male, with PMH of HTN, diabetes, neuropathy, who presents to the ED with SOB. Patient reports he lost his insurance at the beginning of the month and has been off his normal home medications, including hydrochlorothiazide, lisinopril, Atorvastatin. Over the last week, he has been back on his medications, but complains of shortness breath, worse with exertion, chest tightness, swelling and pain in his lower extremities. States he has been using his inhaler and nebulizer treatments at home without improvement. Denies history of asthma however. States he did have minimal swelling in his legs intermittently while on his medications, but it would improve with rest and elevation of his legs. He also reports having a productive cough, chest wall pain with coughing, diffuse abdominal pain and bloating for the last 1 week. He denies N/V/D, constipation, fevers. GENERAL: Chronically ill-appearing, morbidly obese with BMI of 43.3, and in no acute distress. HEAD: Normocephalic, atraumatic. CHEST: Clear to auscultation. respirations are tachypneic. Occasional crackles heard in bases bilaterally. HEART: Tachycardic with regular rhythm. ABD: Abdomen feels slightly firm and distended, diffuse tenderness. No significant focal tenderness. Normoactive BS. MSK: Taut edema to BLE, symmetric, rae calf tenderness to palpation NEURO: ?Alert and oriented x3. Patient screened in triage and initial orders placed.? ?Additional care and disposition to be based upon?diagnostic testing and treatment. <BRIAN Kaufman Last Filed: 08/27/23 18:46> Source: patient <BRIAN Kaufman Last Filed: 08/27/23 18:46> Mode of arrival: ambulatory <BRIAN Kaufman Last Filed: 08/27/23 18:46> Limitations: no limitations <BRIAN Kaufman Last Filed: 08/27/23 18:46> Related Data Home Medications: Home Medications Medication Instructions Recorded Confirmed insulin glargine 100 unit/mL subcut 06/03/21 subcutaneous solution (Lantus U-100 Insulin) insulin lispro 100 unit/mL 06/03/21 subcutaneous solution lisinopril 20 mg tablet 06/03/21 <BRIAN Kaufman Last Filed: 08/27/23 18:46> Allergies/Adverse Reactions: Allergies Allergy/AdvReac Type Severity Reaction Status Date / Time [place] Pepper Allergy Unknown FACE RED Uncoded 03/30/21 05:44 AND SWELLS AND ITCHY SKIN <BRIAN Kaufman Last Filed: 08/27/23 18:46> [facility] Past Medical History Medical History: Medical History HLD (hyperlipidemia) <BRIAN Kaufman Last Filed: 08/27/23 18:46> Family History Family History: Family History Mother Cancer of stomach Other Hypertension Lupus <BRIAN Kaufman Last Filed: 08/27/23 18:46> Social History Social History: Social History Years smoked: 35 Smoking status: Light tobacco smoker Tobacco type: cigarettes Alcohol intake: former Substance use: current Substance use type: marijuana Spiritual care concerns: No <BRIAN Kaufman Last Filed: 08/27/23 18:46> Exam Narrative: APPEARANCE: No apparent distress. Head: atraumatic. EYES: EOMI, NOSE: Atraumatic NECK: Trachea midline RESPIRATORY: No increased rate of breathing , rib bibasilar rales CARDIOVASCULAR: RRR, significant pitting edema of th
[2023-08-27 19:48] LABS: Basophils Percent Auto 0.4 % (0.2-1.2); Eosinophils Absolute Auto 0.2 K/mm3 (0-0.3); Eosinophils Percent Auto 1.9 % (0-4.4); Hemoglobin 11.6 g/dL (14.0-18.0); Immature Granulocyte Absolute 0.03 K/mm3 (0.00-0.031); Immature Granulocyte Percent A 0.4 % (0-0.5); Lymphocytes Absolute Auto 1.56 K/mm3 (0.9-3.2); Lymphocytes Percent Auto 18.4 % (18.3-44.2); Mean Corpuscular HGB Conc 33.1 g/dl (32-36); Mean Corpuscular Hemoglobin 30.5 pg (26-34); Mean Corpuscular Volume 92.1 fl (80-100); Mean Platelet Volume 10.1 fl (7.4-10.4); Monocytes Absolute Auto 0.6 K/mm3 (0.1-0.6); Monocytes Percent Auto 7.6 % (2.6-8.5); Neutrophils Percent Auto 71.3 % (45.5-73.1); Platelet Count Result 209 k/mm3 (150-375); Red Cell Distribution Width 14.2 % (11.5-14.5); White Blood Count 8.5 K/mm3 (4.5-10.0)
[2023-08-27 19:59] LABS: Prothrombin Time 13.9 Seconds (11.1-14.7)
[2023-08-27 20:00] LABS: Partial Thromboplastin Time 32.7 Seconds (22.3-36.8)
[2023-08-27 20:03] LABS: D Dimer 0.88 ug/mL (<0.48)
[2023-08-27 20:04] LABS: Alanine Aminotransferase 17 U/L (6-50); Albumin Level 3.7 g/dL (3.5-5.1); Alkaline Phosphatase 86 U/L (38-126); Anion Gap 6 mmol/L (8-16); Aspartate Amino Transferase 19 U/L (17-59); Bilirubin,Total 0.7 mg/dL (0.2-1.3); Blood Urea Nitrogen 16 mg/dL (9-20); Calcium 8.9 mg/dL (8.4-10.2); Carbon Dioxide 25 mmol/L (22-30); Chloride 107 mmol/L (98-107); Estimated CRCL calculation 109 ml/min; Estimated Glomerular Filt Rate > 60; Glucose 135 mg/dL (65-110); Potassium 3.4 mmol/L (3.4-5.0); Sodium 138 mmol/L (137-145)
[2023-08-27 20:14] LABS: NT Pro B Type Natriuretic Pept 452 pg/mL (19.9-100); Troponin I 0.026 ng/mL (0.000-0.034)
[2023-08-27 20:24] LABS: Influenza A QL RT-PCR Negative (Negative); Influenza B QL RT-PCR Negative (Negative); RSV RNA, RT-PCR Negative (Negative); SARS-CoV-2 RNA PCR Negative (Negative)
--- NOTE | 2023-08-27 22:43 | PC.NURSE ---
Pt wheelchair encouraged. Pt declined.
[2023-08-27 22:47] LABS: Appearance Urine Clear (Clear); Bilirubin Urine Negative (Negative); Blood Urine Negative (Negative); Color Urine Yellow (Yellow); Glucose Urine UA Negative (Negative); Ketones Urine Negative (Negative); Leukocyte Esterase Ur Negative LEU/UL (Negative); Nitrate Urine Negative (Negative); Protein Urine Negative (Negative)
[2023-08-27 22:48] LABS: Add Urine Microscopic? NO
--- NOTE | 2023-08-27 23:26 | PC.NURSE ---
this rn assumed care of patient. this rn took patient report from KAREN Kelly.
[2023-08-28] VITALS (25 sets, daily range): BP systolic 124–152; BP diastolic 63–86; PULSE 81–105; RESP 12–25; TEMP 36.2–36.9; O2SAT 91–100; BMI 43.8
--- NOTE | 2023-08-28 | ECHO_ITS ---
Patient Info Name: Jose Luis Alves Age: 48 years : 1975 Gender: Male Ht: 69 in Wt: 296 lbs BSA: 2.62 m2 HR: 78 bpm BP: 142 / 79 mmHg Heart Rhythm: Sinus Rhythm Technical Quality: Good Exam Date: 08/28/2023 11:59 AM Exam Location: Echo Lab Patient Status: Outpatient Admit Date: 08/28/2023 Staff Ordering Physician: Luis Barajas MD Vp: Sissy Muhammad RDCS Attending Provider: Yara Aguilar MD Referring Physician: Karl LAWRENCE; Exam Type: CA echo doppler color flow Study Info Indications - CHF Complete two-dimensional, color flow and Doppler transthoracic echocardiogram is performed. Summary 1. Complete two-dimensional, color flow and Doppler transthoracic echocardiogram is performed. 2. Concentric left ventricular hypertrophy with vigorous systolic function. 3. Mildly enlarged left atrium. 4. Normal appearing mitral valve structure but with moderate MR. Left Ventricle Left ventricular chamber dimension is normal. Left ventricular systolic function is normal, estimated at 60-65%. There is mild concentric increased left ventricular wall thickness. The left ventricular diastolic function is grade I diastolic dysfunction. Right Ventricle Right ventricular chamber dimension is normal. Left Atria Left atrial chamber dimension is mildly enlarged. Right Atria Right atrial chamber dimension is normal. Aortic Valve The aortic valve is normal. Pulmonic Valve The pulmonic valve is normal. Mitral Valve The mitral valve has normal leaflets. There is moderate mitral valve regurgitation. Tricuspid Valve The tricuspid valve leaflets are normal. Pericardium/Pleural The pericardium appears normal. Aorta The aortic root size at the sinus of Valsalva is normal. Left Ventricular Outflow Tract Name Value Normal LVOT 2D LVOT Diameter 2.2 cm LVOT Doppler LVOT Peak Gradient 10 mmHg LVOT Mean Gradient 7 mmHg LVOT VTI 31 cm LVOT VTI/AV VTI Ratio 1.0 LVOT Stroke Volume 120 ml LVOT CO 11.6 l/min LVOT CI 4.4 l/min/m2 Pulmonic Valve Name Value Normal RVOT Doppler RVOT Peak Gradient 2 mmHg PV Doppler PV Peak Gradient 3 mmHg Mitral Valve Name Value Normal MV Doppler MV Decel Jewell 1,063 cm/s2 MV PHT 44 ms MV Area (PHT) 5.0 cm2 4.0-5.0 MV Regurgitati
--- NOTE | 2023-08-28 00:28 | PC.NURSE ---
this rn received a vorb for pt to have a duoneb treatment. this rn used closed loop communication to confirm pt/ dose/ route/ amount with edp dr. rowe. edp dr. rowe confirmed.
[2023-08-28] MEDS: IPRATROPIUM 0.5 MG/ALBUTEROL SULFATE 2.5 MG AMPUL.NEB 3 ML INHALATION (00:44)
--- NOTE | 2023-08-28 01:17 | PM.IMHP ---
H&P: HPI History of Present Illness Date/Time: 08/28/23 01:17 Chief Complaint: shortness of breath Narrative: this is a 48-year-old male with past medical history significant for diastolic heart failure, insulin-dependent diabetes mellitus, obesity, tobacco dependence. Patient presents to the emergency room due to worsening swelling of bilateral lower extremities, increased abdominal girth, PND, orthopnea, shortness of breath, cough productive of white phlegm. Patient lost his insurance and has been of of his meds for couple of weeks. Denies any fevers, rigors, chills, denies chest pain, denies syncope, near syncope lightheadedness. EXAMINATION: XR chest 2V DATE: 08/27/2023 19:10 INDICATION: Shortness of breath TECHNIQUE: Frontal and lateral views of the chest are obtained COMPARISON: 10/10/2022 FINDINGS: There is a mild diffuse interstitial pattern. There are small pleural effusions. No pneumothorax is identified. The cardiomediastinal silhouette is normal. There is mild thoracic spondylosis. IMPRESSION: 1. Mild pulmonary edema. 2. Small pleural effusions. EXAMINATION: US venous doppler [facility] DATE: 08/27/2023 19:23 INDICATION: Bilateral lower limb swelling TECHNIQUE: Mcgee scale images without and with compression and Doppler images of the bilateral lower extremity veins were obtained. COMPARISON: None FINDINGS: The right common femoral vein, profunda femoral vein, femoral vein, popliteal vein, peroneal trunk, posterior tibial veins, and greater saphenous vein are patent. The left common femoral vein, profunda femoral vein, popliteal vein, and greater saphenous vein are patent. The left femoral, posterior tibial, and peroneal veins are not well evaluated due to body habitus and edema. IMPRESSION: 1. Patent bilateral lower extremity veins with incomplete clearing evaluation of the left femoral, left posterior tibial, and left peroneal veins due to body habitus and edema. No evidence of deep venous thrombosis. EXAMINATION: CTA chest PE abdomen pel DATE: 08/27/2023 22:27 INDICATION: Shortness of breath TECHNIQUE: Computed tomography angiography (CTA) of the chest was performed with 100 mL Omnipaque-350 intravenous contrast timed to evaluate the pulmonary arteries. Subsequent postcontrast images of the abdomen and pelvis are obtained. Coronal maximum intensity projection 3D-reconstructions were created by the technologist. The dose-length product (DLP) was 2606.24 mGy-cm. Automated exposure control and iterative reconstruction technique were employed. COMPARISON: 03/30/2021 FINDINGS: CTA CHEST: The pulmonary arteries are well-opacified. No pulmonary embolism is identified. There are small pleural effusions. There are subpleural airspace opacities. There is smooth interlobular septal thickening with a lower lung zone distribution. There is no pneumothorax. The heart size is normal. There is mild mediastinal and bilateral hilar lymphadenopathy. The heart size is normal. ABDOMEN/PELVIS CT: The liver, pancreas, gallbladder, and adrenal glands are normal. Splenomegaly is noted. Nonobstructing stones of the right kidney measure up to 2 mm. There is a 3 mm nonobstructing stone of the left kidney. No pathologically enlarged abdominal or pelvic lymph nodes are identified. No free intraperitoneal gas or evidence of bowel obstruction. Colonic diverticulosis is present without evidence of diverticulitis. IMPRESSION: 1. No pulmonary embolism identified. 2. Small pleural effusions. 3. Mild pulmonary edema. Review of Systems Review of Systems: PND, orthopnea, generalized swelling, shortness of breath PMFSH Past Medical History Medical History HLD (hyperlipidemia) Family History Family History Mother Cancer of stomach Other Hypertension Lupus Social History Social History (Review
--- NOTE | 2023-08-28 03:58 | ADMGEN ---
This patient, Jose Luis Alves, was admitted to IMU Room 214-01. Patient/family oriented to hospital policies and general routines including ID bracelet, bed and alarms, visiting hours, pain management, procedures, bathroom and other care routines, personal items, smoking policy, room service/diet, and visiting hours. Information on how to activate the Rapid Response Team has been discussed. Patient/Family are encouraged to report perceived risks to care and to ask questions if they do not understand what they are told or what they should do.
[2023-08-28 07:44] LABS: Glucose Point of Care 122 mg/dl (65-105)
[2023-08-28] MEDS: FUROSEMIDE INJ 40 MG/4 ML VIAL IV PUSH ×2 (08:34→18:51)
--- NOTE | 2023-08-28 08:46 | PC.NURSE ---
Report given to Dr. Yoo the pts home medication are completed. POC reviewed
--- NOTE | 2023-08-28 11:00 | PM.CNCAR ---
Assessment and Plan Assessment and plan (1) Acute exacerbation of congestive heart failure: Code(s): I50.9 - Heart failure, unspecified Status: Acute Plan This is a 48-year-old man with longstanding hypertension and diabetes presenting with picture of biventricular heart failure after being off his medication for about a week or 2. He clearly is volume overloaded and requires diuresis. Of some concern on his physical exam is that we hear murmur of mitral valve regurgitation as well. I am going to start guideline directed medical therapy with metoprolol succinate and starting Entresto tomorrow since he has been off of his lisinopril since yesterday. We will assess his response to therapy and review his echocardiogram and further recommendations will be pending his response to treatment and the echocardiographic findings. Luis Barajas MD [facility] History of Present Illness History of Present Illness Consult date/time: 08/28/23 11:00 Reason For Visit: CHF Narrative: This is a 48-year-old man unknown to me prior to this consultation I am seeing at the request of the hospitalist because of evidence of congestive heart failure. The patient states he has no previous cardiac problems and has a history of longstanding hypertension and diabetes. Because of financial reasons/loss of insurance he has not been taking his medication for between 1 and 2 weeks and began to experience symptoms of dyspnea and lower extremity edema. He is not having any chest pain pressure or heaviness his evaluation in the emergency room showed evidence of biventricular congestive heart failure and in that setting we have been asked to see him in consultation the only medication that is been ordered for him less far as intravenous furosemide. He indicates that he is noticing some improvement in his swelling and shortness of breath since receiving that yesterday evening. His hypertension regimen normally consists of amlodipine 10 mg per day along with 40 mg of lisinopril and 12.5 mg of hydrochlorothiazide. Twelve lead electrocardiogram shows sinus mechanism with poor R-wave progression no acute ST or T-wave abnormalities. He does smoke he says about 5 or 6 cigarettes per day and is trying to quit. He works as a food preparation kitchen aide. Review of Systems Constitutional: Constitutional: Reports lethargy Eyes: Eyes: Reports no additional eye complaints ENT: Reports system reviewed and no additional complaints, except as documented Cardiovascular: Cardiovascular: Reports no additional cardiovascular complaints Respiratory: Respiratory: Reports dyspnea Gastrointestinal: Gastrointestinal: Reports no additional gastrointestinal complaints Musculoskeletal: Musculoskeletal: Reports no additional musculoskeletal complaints Integumentary/Breasts: Skin/Breast: Reports system reviewed and no additional complaints, except as docu Neurologic: Reports system reviewed and no additional complaints, except as documented Psychiatric: Psychiatric: Reports no additional psychiatric complaints Endocrine: Endocrine: Reports no additional endocrine complaints Hematologic/Lymphatic: Hematologic/Lymphatic: Reports no additional hematologic/lymphatic complaints Allergic/Immunologic: Allergic/Immunologic: Reports no additional allergic/immunologic complaints PMFSH Past Medical History Medical History HLD (hyperlipidemia) Family History Family History Mother Cancer of stomach Other Hypertension Lupus Social History Social History Years smoked: 38 Smoking status: Current some day smoker Tobacco type: cigarettes Alcohol intake: former Substance use: current Substance use type: marijuana Other substance usage details: occasional Last use: 07/2023 Do You Feel S
[2023-08-28 11:46] LABS: Glucose Point of Care 151 mg/dl (65-105)
[2023-08-28] MEDS: GABAPENTIN 400 MG CAPSULE PO ×2 (13:12→18:51)
[2023-08-28] MEDS: METOPROLOL SUCCINATE EXT REL 25 MG TABCR PO (13:12)
[2023-08-28] MEDS: INSULIN GLARGINE (*BKC) 100 UNITS/ML 32 UNITS SUB-Q (13:13)
[2023-08-28] MEDS: FUROSEMIDE INJ 40 MG/4 ML VIAL 20 MG IV PUSH (15:00)
[2023-08-28 18:13] LABS: Glucose Point of Care 167 mg/dl (65-105)
[2023-08-28] MEDS: ACETAMINOPHEN 500 MG TABLET 1000 MG PO (21:41)
[2023-08-28] MEDS: ATORVASTATIN 40 MG TABLET PO (21:42)
[2023-08-29] VITALS (15 sets, daily range): BP systolic 108–132; BP diastolic 67–77; PULSE 84–98; RESP 16–20; TEMP 36.1–36.6; O2SAT 95–98
[2023-08-29 04:41] LABS: Basophils Absolute Auto 0.1 K/mm3 (0.0-0.1); Basophils Percent Auto 0.6 % (0.2-1.2); Eosinophils Absolute Auto 0.2 K/mm3 (0-0.3); Eosinophils Percent Auto 1.9 % (0-4.4); Hematocrit 36.6 % (42.0-52.0); Hemoglobin 12.2 g/dL (14.0-18.0); Immature Granulocyte Absolute 0.03 K/mm3 (0.00-0.031); Immature Granulocyte Percent A 0.3 % (0-0.5); Lymphocytes Absolute Auto 2.16 K/mm3 (0.9-3.2); Lymphocytes Percent Auto 23.3 % (18.3-44.2); Mean Corpuscular HGB Conc 33.3 g/dl (32-36); Mean Corpuscular Hemoglobin 30.7 pg (26-34); Mean Platelet Volume 9.6 fl (7.4-10.4); Monocytes Absolute Auto 0.7 K/mm3 (0.1-0.6); Monocytes Percent Auto 7.5 % (2.6-8.5); Neutrophils Absolute Auto 6.1 K/mm3 (1.3-6.7); Neutrophils Percent Auto 66.4 % (45.5-73.1); Platelet Count Result 243 k/mm3 (150-375); Red Blood Count 3.98 M/mm3 (4.6-6.20); Red Cell Distribution Width 13.9 % (11.5-14.5); White Blood Count 9.3 K/mm3 (4.5-10.0)
[2023-08-29 05:00] LABS: Anion Gap 8 mmol/L (8-16); Blood Urea Nitrogen 17 mg/dL (9-20); Calcium 8.7 mg/dL (8.4-10.2); Carbon Dioxide 26 mmol/L (22-30); Chloride 104 mmol/L (98-107); Estimated CRCL calculation 100 ml/min; Estimated Glomerular Filt Rate > 60; Glucose 96 mg/dL (65-110); Magnesium 1.8 mg/dL (1.6-2.3); Potassium 2.9 mmol/L (3.4-5.0); Sodium 138 mmol/L (137-145)
[2023-08-29] MEDS: lisinopriL 20 MG TABLET 40 MG PO (08:27)
[2023-08-29] MEDS: ENOXAPARIN 40 MG/0.4 ML SYRINGE SUB-Q (08:27)
[2023-08-29] MEDS: METOPROLOL SUCCINATE EXT REL 25 MG TABCR PO (08:28)
[2023-08-29] MEDS: GABAPENTIN 400 MG CAPSULE PO ×3 (08:28→17:20)
[2023-08-29] MEDS: FUROSEMIDE INJ 40 MG/4 ML VIAL IV PUSH ×2 (08:29→17:20)
[2023-08-29 08:36] LABS: Glucose Point of Care 157 mg/dl (65-105)
[2023-08-29] MEDS: INSULIN GLARGINE (*BKC) 100 UNITS/ML 32 UNITS SUB-Q (08:39)
[2023-08-29] MEDS: POTASSIUM CHLORIDE 20 MEQ ER TABLET 40 MEQ PO (09:19)
[2023-08-29] MEDS: POTASSIUM CHLORIDE 20 MEQ ER TABLET PO (09:35)
--- NOTE | 2023-08-29 11:14 | PC.NURSE ---
The pt is requesting to be pushed in a wheelchair by significant other. The Charge Nurse was given report on the pts wishes. Per art editor Haily as long as the pt does not go past the elevators. The pt was given education et display verbal understanding. Wheelchair brought to the family per this RN
--- NOTE | 2023-08-29 11:36 | PM.PNCARD ---
Progress Note: A&P Assessment and Plan (1) Acute exacerbation of congestive heart failure: Code(s): I50.9 - Heart failure, unspecified Status: Acute Assessment and Plan: Likely diastolic with valvular component including MRSigrid Will order an ApneaLink to evaluate for sleep apnea which he likely has which may also be a contributor. Will increase his metoprolol succinate to 50 mg daily. Will reduce his furosemide to 40 mg IV daily. Continue lisinopril. Ideally Entresto will be used but he has no insurance at this point. Continue atorvastatin (2) Tobacco dependence: Code(s): F17.200 - Nicotine dependence, unspecified, uncomplicated Status: Acute Assessment and Plan: Tobacco abuse counseling performed (3) Hyperlipidemia associated with type 2 diabetes mellitus: Code(s): E11.69 - Type 2 diabetes mellitus with other specified complication; E78.5 - Hyperlipidemia, unspecified Status: Acute Assessment and Plan: Continue statin. Diabetic management per hospitalist (4) Hypertension associated with diabetes: Code(s): E11.59 - Type 2 diabetes mellitus with other circulatory complications; I15.2 - Hypertension secondary to endocrine disorders Status: Acute Assessment and Plan: Continue above meds for BP including lisinopril, metoprolol (5) Nonrheumatic mitral valve regurgitation: Code(s): I34.0 - Nonrheumatic mitral (valve) insufficiency Status: Acute Assessment and Plan: Moderate by transthoracic echo. Recommend DREW as an outpatient. Subjective Date/time seen: 08/29/23 11:36 Interval history: 48-year-old admitted with shortness of breath and heart failure Is a risk 08/29/2023: Feeling better. Able a flat last night. Swelling is better but still present. No chest pain. Review of Systems Constitutional: Constitutional: Reports lethargy Eyes: Eyes: Reports no additional eye complaints ENT: Reports system reviewed and no additional complaints, except as documented Cardiovascular: Cardiovascular: Reports no additional cardiovascular complaints, Denies chest pain and Reports dyspnea Respiratory: Respiratory: Reports dyspnea Gastrointestinal: Gastrointestinal: Reports no additional gastrointestinal complaints Musculoskeletal: Musculoskeletal: Reports no additional musculoskeletal complaints Integumentary/Breasts: Skin/Breast: Reports system reviewed and no additional complaints, except as docu Neurologic: Reports system reviewed and no additional complaints, except as documented Psychiatric: Psychiatric: Reports no additional psychiatric complaints Endocrine: Endocrine: Reports no additional endocrine complaints Hematologic/Lymphatic: Hematologic/Lymphatic: Reports no additional hematologic/lymphatic complaints Allergic/Immunologic: Allergic/Immunologic: Reports no additional allergic/immunologic complaints Exam Const: General: comfortable and no acute distress HENMT: Mouth: Yes moist mucous membranes Eyes: General: appearance normal, both eyes and all related structures Sclera: sclerae normal Neck: Neck: supple Other: Carotid impulses are unremarkable bilaterally. No obvious JVD, exam for that is very challenging given his body habitus Resp: Effort & Inspection: normal respiratory effort Other: Patient has bilateral basilar pulmonary rales Cardio: Rate: regular rate Rhythm: regular rhythm Other: Grade 2/6 holosystolic murmur audible best at the apex. GI: Auscultation: normal bowel sounds Skin: General skin exam: normal color Neuro: Speech: normal speech Other: Alert and oriented x3 Extrem: Other: 1-2 + lower extremity pitting edema Psych: Mental Status: mental status grossly normal Objective Data Vital Signs Vital Signs: Vital Signs - 24 hr 08/28/23 11:57 08/28/23 13:12 08/28/23 12:00 Temperature 36.9 C Pulse Rate 90 98 90 Respiratory Rate 12 Blood
--- NOTE | 2023-08-29 11:47 | PM.IMPN ---
Progress Note: A&P Assessment and Plan (1) Nonrheumatic mitral valve regurgitation: Code(s): I34.0 - Nonrheumatic mitral (valve) insufficiency Status: Acute (2) Acute exacerbation of congestive heart failure: Code(s): I50.9 - Heart failure, unspecified Status: Acute (3) Fluid overload: Code(s): E87.70 - Fluid overload, unspecified Status: Acute (4) CHF (congestive heart failure): Code(s): I50.9 - Heart failure, unspecified Status: Acute (5) Diabetes mellitus with hyperglycemia: Code(s): E11.65 - Type 2 diabetes mellitus with hyperglycemia Status: Acute (6) Hypertension: Code(s): I10 - Essential (primary) hypertension Status: Acute (7) Tobacco dependence: Code(s): F17.200 - Nicotine dependence, unspecified, uncomplicated Status: Acute (8) Hypertension associated with diabetes: Code(s): E11.59 - Type 2 diabetes mellitus with other circulatory complications; I15.2 - Hypertension secondary to endocrine disorders Status: Acute Plan Metoprolol increased. Furosemide decreased. Hypokalemia due to loop diuretic. Have given him 60 mEq p.o.. Tomorrow start 20 mEq p.o. daily. HbA1c pending. Can you Lantus and sliding scale. FEN: Saline lock IV. Heart healthy diabetic diet GI prophylaxis: Not indicated DVT prophylaxis: Lovenox 40 mg q.day Lines: Peripheral IV Code Status: Full code Dispo: Stable. Transfer to medical tele floor. Subjective Date/time seen: 08/29/23 11:47 Interval history: No acute overnight events. Patient believes his abdominal swelling has resolved. He no longer can hear the crackles in his throat. Review of Systems Review of Systems: All systems reviewed & are unremarkable except as noted in HPI and below (Subjective) Exam Const: General: comfortable and no acute distress Other: Morbidly obese. A&O x3. Eyes: Pupils: Equal, round and reactive pupils present Neck: Neck: supple Resp: Effort & Inspection: normal respiratory effort Auscultation: crackles (Scant) Cardio: Rate: regular rate Rhythm: regular rhythm Heart sounds: no gallops, no murmurs and no rubs GI: GI Palp: Yes Soft to palpation and No Tenderness to palpation present (GI) Extrem: General: edema Other: 1 to 2+ bilateral lower extremities below the knees Objective Data Vital Signs Vital Signs: Vital Signs - 24 hr 08/28/23 11:57 08/28/23 13:12 08/28/23 12:00 Temperature 98.5 F Pulse Rate 90 98 90 Respiratory Rate 12 Blood Pressure 130/77 Pulse Oximetry 95 Oxygen Delivery 08/28/23 15:53 08/28/23 12:00 08/28/23 14:00 Temperature 98.4 F Pulse Rate 87 87 99 Respiratory Rate 20 20 Blood Pressure 146/77 H Pulse Oximetry 95 95 Oxygen Delivery Room Air 08/28/23 16:00 08/28/23 16:00 08/28/23 18:00 Temperature Pulse Rate 81 86 Respiratory Rate Blood Pressure Pulse Oximetry Oxygen Delivery Room Air 08/28/23 20:00 08/28/23 20:00 08/28/23 20:00 Temperature 97.8 F Pulse Rate 88 88 89 Respiratory Rate 18 18 Blood Pressure 136/86 Pulse Oximetry 96 96 Oxygen Delivery Room Air 08/28/23 22:00 08/29/23 00:00 08/29/23 00:00 Temperature Pulse Rate 87 85 90 Respiratory Rate 16 Blood Pressure Pulse Oximetry 97 Oxygen Delivery Room Air 08/28/23 23:47 08/29/23 04:00 08/29/23 02:00 Temperature 97.1 F L 97 F L Pulse Rate 90 89 88 Respiratory Rate 16 Blood Pressure 124/63 132/70 Pulse Oximetry 97 97 Oxygen Delivery 08/29/23 04:00 08/29/23 04:00 08/29/23 06:00 Temperature Pulse Rate 84 84 87 Respiratory Rate 16 Blood Pressure Pulse Oximetry 97 Oxygen Delivery Room Air 08/29/23 07:59 08/29/23 08:00 08/29/23 08:28 Temperature Pulse Rate 98 92 Respiratory Rate Blood Pressure Pulse Oximetry Oxygen Delivery Room Air 08/29/23 08:27 08/29/23 08:00 08/29/23 10:00 Temperature
[2023-08-29 12:11] LABS: Glucose Point of Care 157 mg/dl (65-105)
--- NOTE | 2023-08-29 14:52 | ECG_ITS ---
Measurements Intervals [place] Rate: 84 P: 43 PA: 154 QRS: -17 QRSD: 154 T: 112 QT: 413 QTc: 490 Interpretive Statements SINUS RHYTHM LEFT BUNDLE BRANCH BLOCK BASELINE ARTIFACT- I, II, AVR, V6 ABNORMAL ECG COMPARED TO ECG 08/27/2023 18:35:56 SINUS RHYTHM NOW PRESENT Electronically Signed On 08-29-2023 19:14:15 CDT by Александр De Jesus D.O.
--- NOTE | 2023-08-29 14:53 | PC.NURSE ---
The pts HR dropping down into the 40s. The pt denied pain when asked. Dr. Yoo given report on events with new interventions T.O.R.B. Dr. Yoo / This RN 1.) Stat ECG. A call has been placed to ECG et informed that a stat ECG was needed.
[2023-08-29 15:43] LABS: Hemoglobin A1C 7.3 % (<5.7)
[2023-08-29 16:05] LABS: Glucose Point of Care 164 mg/dl (65-105)
--- NOTE | 2023-08-29 19:01 | PC.NURSE ---
Report given to Perla JONES ( Day RN )
[2023-08-29] MEDS: ATORVASTATIN 40 MG TABLET PO (20:24)
[2023-08-30] VITALS (13 sets, daily range): BP systolic 118–138; BP diastolic 70–83; PULSE 72–103; RESP 18–20; TEMP 36.1–36.6; O2SAT 95–98
--- NOTE | 2023-08-30 01:40 | ECG_ITS ---
Measurements Intervals [place] Rate: 89 P: -25 ND: 120 QRS: -24 QRSD: 158 T: 151 QT: 413 QTc: 503 Interpretive Statements SINUS RHYTHM POSSIBLE LEFT ATRIAL ENLARGEMENT LEFT BUNDLE BRANCH BLOCK ABNORMAL ECG COMPARED TO ECG 08/29/2023 14:59:50 NO SIGNIFICANT CHANGES Electronically Signed On 08-30-2023 7:43:20 CDT by Александр De Jesus D.O.
[2023-08-30 02:48] LABS: Phosphorus 3.6 mg/dL (2.5-4.5); Potassium 3.3 mmol/L (3.4-5.0)
[2023-08-30] MEDS: ACETAMINOPHEN 500 MG TABLET 1000 MG PO ×2 (04:10→20:50)
[2023-08-30] MEDS: ALBUTEROL SULFATE (*SP) AEROSOL 1 PUFF 2 PUFF INHALATION (04:15)
[2023-08-30 07:30] LABS: Anion Gap 4 mmol/L (8-16); Blood Urea Nitrogen 20 mg/dL (9-20); Calcium 8.6 mg/dL (8.4-10.2); Carbon Dioxide 30 mmol/L (22-30); Chloride 106 mmol/L (98-107); Estimated CRCL calculation 109 ml/min; Estimated Glomerular Filt Rate > 60; Glucose 125 mg/dL (65-110); Magnesium 1.9 mg/dL (1.6-2.3); Potassium 2.9 mmol/L (3.4-5.0); Sodium 140 mmol/L (137-145)
[2023-08-30 08:14] LABS: Glucose Point of Care 124 mg/dl (65-105)
[2023-08-30] MEDS: GABAPENTIN 400 MG CAPSULE PO ×3 (09:09→17:09)
[2023-08-30] MEDS: lisinopriL 20 MG TABLET 40 MG PO (09:09)
[2023-08-30] MEDS: POTASSIUM CHLORIDE 20 MEQ ER TABLET PO (09:10)
[2023-08-30] MEDS: FUROSEMIDE INJ 40 MG/4 ML VIAL IV PUSH (09:10)
[2023-08-30] MEDS: INSULIN GLARGINE (*BKC) 100 UNITS/ML 32 UNITS SUB-Q (09:21)
[2023-08-30] MEDS: ENOXAPARIN 40 MG/0.4 ML SYRINGE SUB-Q (09:23)
--- NOTE | 2023-08-30 10:29 | PM.PNCARD ---
Progress Note: A&P Assessment and Plan (1) Acute exacerbation of congestive heart failure: Code(s): I50.9 - Heart failure, unspecified Status: Acute Assessment and Plan: Likely diastolic with valvular component including MRSigrid Will order an ApneaLink to evaluate for sleep apnea which he likely has which may also be a contributor. Continue metoprolol succinate to 50 mg daily. Continue furosemide 40 mg IV daily. Continue lisinopril. Ideally Entresto will be used but he has no insurance at this point. Continue atorvastatin (2) Tobacco dependence: Code(s): F17.200 - Nicotine dependence, unspecified, uncomplicated Status: Acute Assessment and Plan: Tobacco abuse counseling performed (3) Hyperlipidemia associated with type 2 diabetes mellitus: Code(s): E11.69 - Type 2 diabetes mellitus with other specified complication; E78.5 - Hyperlipidemia, unspecified Status: Acute Assessment and Plan: Continue statin. Diabetic management per hospitalist (4) Hypertension associated with diabetes: Code(s): E11.59 - Type 2 diabetes mellitus with other circulatory complications; I15.2 - Hypertension secondary to endocrine disorders Status: Acute Assessment and Plan: Continue above meds for BP including lisinopril, metoprolol (5) Nonrheumatic mitral valve regurgitation: Code(s): I34.0 - Nonrheumatic mitral (valve) insufficiency Status: Acute Assessment and Plan: Moderate by transthoracic echo. Recommend DREW as an outpatient. (6) Hypokalemia: Code(s): E87.6 - Hypokalemia Status: Acute Assessment and Plan: Potassium chloride 40 mEq now and then 4 hours due to significant low potassium Subjective Date/time seen: 08/30/23 10:29 Interval history: 48-year-old admitted with shortness of breath and heart failure Date of service 08/30/2023: Still swollen. No shortness of breath. No chest pain. Review of Systems Constitutional: Constitutional: Reports lethargy Eyes: Eyes: Reports no additional eye complaints ENT: Reports system reviewed and no additional complaints, except as documented Cardiovascular: Cardiovascular: Reports no additional cardiovascular complaints, Denies chest pain and Reports dyspnea Respiratory: Respiratory: Reports dyspnea Gastrointestinal: Gastrointestinal: Reports no additional gastrointestinal complaints Musculoskeletal: Musculoskeletal: Reports no additional musculoskeletal complaints Integumentary/Breasts: Skin/Breast: Reports system reviewed and no additional complaints, except as docu Neurologic: Reports system reviewed and no additional complaints, except as documented Psychiatric: Psychiatric: Reports no additional psychiatric complaints Endocrine: Endocrine: Reports no additional endocrine complaints Hematologic/Lymphatic: Hematologic/Lymphatic: Reports no additional hematologic/lymphatic complaints Allergic/Immunologic: Allergic/Immunologic: Reports no additional allergic/immunologic complaints Exam Const: General: comfortable and no acute distress Other: Relatively pleasant morbidly obese man head of the bed elevated about 45? no immediate distress HENMT: Mouth: Yes moist mucous membranes Eyes: General: appearance normal, both eyes and all related structures Sclera: sclerae normal Neck: Neck: supple Other: Carotid impulses are unremarkable bilaterally. No obvious JVD, exam for that is very challenging given his body habitus Resp: Effort & Inspection: normal respiratory effort Other: Patient has bilateral basilar pulmonary rales Cardio: Rate: regular rate Rhythm: regular rhythm Other: Grade 2/6 holosystolic murmur audible best at the apex. GI: Auscultation: normal bowel sounds Skin: General skin exam: normal color Neuro: Speech: normal speech Other: Alert and oriented x3 Extrem: Other: 1-2 + lower extremity pitting edema
[2023-08-30 11:36] LABS: Glucose Point of Care 223 mg/dl (65-105)
[2023-08-30] MEDS: POTASSIUM CHLORIDE 20 MEQ ER TABLET 40 MEQ PO (13:09)
[2023-08-30] MEDS: INSULIN ASPART (*BKC) 100 UNITS/ML SUB-Q ×2 (13:14→20:45)
--- NOTE | 2023-08-30 13:26 | PCRCNOTE ---
Pt. refused both 0800 & 1400 [facility] treatments today. Pt. will call if Tx. if needed
--- NOTE | 2023-08-30 14:43 | PM.IMPN ---
Progress Note: A&P Assessment and Plan (1) Acute exacerbation of congestive heart failure: Code(s): I50.9 - Heart failure, unspecified Status: Acute (2) Fluid overload: Code(s): E87.70 - Fluid overload, unspecified Status: Acute (3) CHF (congestive heart failure): Code(s): I50.9 - Heart failure, unspecified Status: Acute (4) Diabetes mellitus with hyperglycemia: Code(s): E11.65 - Type 2 diabetes mellitus with hyperglycemia Status: Acute (5) Hypertension: Code(s): I10 - Essential (primary) hypertension Status: Acute (6) Tobacco dependence: Code(s): F17.200 - Nicotine dependence, unspecified, uncomplicated Status: Acute (7) Hypertension associated with diabetes: Code(s): E11.59 - Type 2 diabetes mellitus with other circulatory complications; I15.2 - Hypertension secondary to endocrine disorders Status: Acute Plan Hopefully home tomorrow. Replacing potassium today. Tomorrow in the morning will restart metoprolol at a lower dose given he was bradycardic yesterday although that was transient and while he was sleeping. Lasix has been changed to 40 mg daily. Cardiology following as well. Appreciate their recommendations. FEN: Saline lock IV. Heart healthy diabetic diet GI prophylaxis: Not indicated DVT prophylaxis: Lovenox 40 mg q.day Lines: Peripheral IV Code Status: Full code Dispo: Stable on medical floor Subjective Date/time seen: 08/30/23 14:43 Interval history: No acute overnight events. Unable to have the ApneaLink down last night. As well, he elevated his feet above his heart and then started here in the gurgling/crackling sound in his throat. Eckert he believes he is doing better. Review of Systems Review of Systems: All systems reviewed & are unremarkable except as noted in HPI and below (Subjective) Exam Const: General: comfortable and no acute distress Other: Morbidly obese. A&O x3. Eyes: Pupils: Equal, round and reactive pupils present Neck: Neck: supple Resp: Effort & Inspection: normal respiratory effort Auscultation: crackles (Scant) Cardio: Rate: regular rate Rhythm: regular rhythm Heart sounds: no gallops, no murmurs and no rubs GI: GI Palp: Yes Soft to palpation and No Tenderness to palpation present (GI) Extrem: General: edema Other: 1 to 2+ bilateral lower extremities below the knees Objective Data Vital Signs Vital Signs: Vital Signs - 24 hr 08/29/23 16:00 08/29/23 16:00 08/29/23 18:00 Temperature 97.6 F Pulse Rate 88 85 85 Respiratory Rate 16 Blood Pressure 120/76 Pulse Oximetry 98 Oxygen Delivery 08/29/23 20:00 08/29/23 20:00 08/30/23 00:00 Temperature 98 F Pulse Rate 89 89 86 Respiratory Rate 20 Blood Pressure 129/77 Pulse Oximetry 98 Oxygen Delivery 08/30/23 01:40 08/29/23 21:50 08/30/23 04:00 Temperature Pulse Rate 90 85 Respiratory Rate Blood Pressure 138/83 Pulse Oximetry 98 98 Oxygen Delivery Room Air 08/30/23 06:00 08/30/23 08:30 08/30/23 08:55 Temperature 97 F L Pulse Rate 97 93 Respiratory Rate 20 Blood Pressure 120/70 Pulse Oximetry 95 97 Oxygen Delivery Room Air 08/30/23 14:00 Temperature 97.2 F L Pulse Rate 72 Respiratory Rate 18 Blood Pressure 118/72 Pulse Oximetry 98 Oxygen Delivery Intake/Output Intake/Output: Intake & Output 08/27/23 08/28/23 08/29/23 08/30/23 23:59 23:59 23:59 23:59 Intake Total 7667 290 1464 Output Total 1700 3600 1575 Balance -138 -4453 -115 Meds/Results Medications: Active Medications Generic Name Dose Route Start Last Admin Trade Name Freq PRN Reason Stop Dose Admin Acetaminophen 1,000 mg 08/28/23 20:59 08/30/23 04:10 Acetaminophen 500 Mg Tablet PO 1,000 mg Q6H PRN Administration Mild Pain (1-3) or Fever Albuterol 2 puff 08/30/23 04:05 08/30/23 04:15 Albuterol Sulfate (*Sp) Aerosol 1 Puff INH
[2023-08-30 17:02] LABS: Glucose Point of Care 159 mg/dl (65-105)
[2023-08-30] MEDS: ATORVASTATIN 40 MG TABLET PO (20:45)
[2023-08-30 21:20] LABS: Glucose Point of Care 203 mg/dl (65-105)
[2023-08-30] MEDS: IPRATROPIUM 0.5 MG/ALBUTEROL SULFATE 2.5 MG AMPUL.NEB 3 ML INHALATION (23:15)
[2023-08-31] VITALS (14 sets, daily range): BP systolic 136–178; BP diastolic 71–84; PULSE 76–100; RESP 16–20; TEMP 36.1–36.4; O2SAT 95–100
[2023-08-31] MEDS: WATER FOR IRRIGATION, STERILE 1,000 ML BOTTLE 1000 ML (00:15)
[2023-08-31 07:08] LABS: Anion Gap 5 mmol/L (8-16); Blood Urea Nitrogen 22 mg/dL (9-20); Calcium 8.9 mg/dL (8.4-10.2); Carbon Dioxide 31 mmol/L (22-30); Chloride 105 mmol/L (98-107); Estimated CRCL calculation 109 ml/min; Estimated Glomerular Filt Rate > 60; Glucose 149 mg/dL (65-110); Magnesium 2.2 mg/dL (1.6-2.3); Potassium 3.5 mmol/L (3.4-5.0); Sodium 141 mmol/L (137-145)
[2023-08-31 07:47] LABS: Glucose Point of Care 140 mg/dl (65-105)
--- NOTE | 2023-08-31 08:02 | PCRCNOTE ---
Patient refused scheduled breathing treatment stating he feels he doesn't need it. RN aware.
[2023-08-31] MEDS: POTASSIUM CHLORIDE 20 MEQ ER TABLET PO (08:38)
[2023-08-31] MEDS: FUROSEMIDE INJ 40 MG/4 ML VIAL IV PUSH (08:38)
[2023-08-31] MEDS: GABAPENTIN 400 MG CAPSULE PO ×3 (08:38→17:30)
[2023-08-31] MEDS: lisinopriL 20 MG TABLET 40 MG PO (08:38)
[2023-08-31] MEDS: ACETAMINOPHEN 500 MG TABLET 1000 MG PO ×2 (08:38→20:34)
[2023-08-31] MEDS: ENOXAPARIN 40 MG/0.4 ML SYRINGE SUB-Q (08:38)
[2023-08-31] MEDS: METOPROLOL SUCCINATE EXT REL 12.5 MG TABCR PO (08:39)
[2023-08-31] MEDS: INSULIN GLARGINE (*BKC) 100 UNITS/ML 32 UNITS SUB-Q (08:40)
--- NOTE | 2023-08-31 08:55 | PM.PNCARD ---
Progress Note: A&P Assessment and Plan (1) Acute exacerbation of congestive heart failure: Code(s): I50.9 - Heart failure, unspecified Status: Acute Assessment and Plan: Likely diastolic with valvular component including MR. --ApneaLink showed AHI of 9. Will need outpatient sleep study --Continue metoprolol succinate to 50 mg daily. --Continue furosemide but shift to 40mg p.o. b.i.d.. --Continue lisinopril. --Ideally Entresto will be used but he has no insurance at this point. --Continue atorvastatin (2) Tobacco dependence: Code(s): F17.200 - Nicotine dependence, unspecified, uncomplicated Status: Acute Assessment and Plan: Tobacco abuse counseling performed (3) Hyperlipidemia associated with type 2 diabetes mellitus: Code(s): E11.69 - Type 2 diabetes mellitus with other specified complication; E78.5 - Hyperlipidemia, unspecified Status: Acute Assessment and Plan: Continue statin. Diabetic management per hospitalist (4) Hypertension associated with diabetes: Code(s): E11.59 - Type 2 diabetes mellitus with other circulatory complications; I15.2 - Hypertension secondary to endocrine disorders Status: Acute Assessment and Plan: Continue above meds for BP including lisinopril, metoprolol (5) Nonrheumatic mitral valve regurgitation: Code(s): I34.0 - Nonrheumatic mitral (valve) insufficiency Status: Acute Assessment and Plan: Moderate by transthoracic echo. Recommend DREW as an outpatient. (6) Hypokalemia: Code(s): E87.6 - Hypokalemia Status: Acute Assessment and Plan: 3.5 today Plan Spoke to Hospitalist regarding plan and recommendations Subjective Date/time seen: 08/31/23 08:55 Interval history: 48-year-old admitted with shortness of breath and heart failure Date of service 08/30/2023: Still swollen. No shortness of breath. No chest pain. Date of service 08/31/2023: Feeling better today. He remains swollen but this is improving. Had some shortness of breath after walking 5-6 laps around the unit. No chest pain. Review of Systems Constitutional: Constitutional: Reports lethargy Eyes: Eyes: Reports no additional eye complaints ENT: Reports system reviewed and no additional complaints, except as documented Cardiovascular: Cardiovascular: Reports no additional cardiovascular complaints, Denies chest pain and Reports dyspnea Respiratory: Respiratory: Reports dyspnea Gastrointestinal: Gastrointestinal: Reports no additional gastrointestinal complaints Musculoskeletal: Musculoskeletal: Reports no additional musculoskeletal complaints Integumentary/Breasts: Skin/Breast: Reports system reviewed and no additional complaints, except as docu Neurologic: Reports system reviewed and no additional complaints, except as documented Psychiatric: Psychiatric: Reports no additional psychiatric complaints Endocrine: Endocrine: Reports no additional endocrine complaints Hematologic/Lymphatic: Hematologic/Lymphatic: Reports no additional hematologic/lymphatic complaints Allergic/Immunologic: Allergic/Immunologic: Reports no additional allergic/immunologic complaints Exam Const: General: comfortable and no acute distress HENMT: Mouth: Yes moist mucous membranes Eyes: General: appearance normal, both eyes and all related structures Sclera: sclerae normal Neck: Neck: supple Resp: Effort & Inspection: normal respiratory effort Auscultation: clear to auscultation bilaterally Cardio: Rate: regular rate Rhythm: regular rhythm Heart sounds: Murmur heart sound present GI: Auscultation: normal bowel sounds Skin: General skin exam: normal color Neuro: Speech: normal speech Other: Alert and oriented x3 Extrem: Other: moderate pedal edema Psych: Mental Status: mental status grossly normal Objective Data Vital Signs Vital Signs: Vital Signs - 24 hr
[2023-08-31 11:29] LABS: Glucose Point of Care 185 mg/dl (65-105)
--- NOTE | 2023-08-31 15:54 | PM.IMPN ---
Progress Note: A&P Assessment and Plan (1) Acute exacerbation of congestive heart failure: Code(s): I50.9 - Heart failure, unspecified Status: Acute (2) Fluid overload: Code(s): E87.70 - Fluid overload, unspecified Status: Acute (3) CHF (congestive heart failure): Code(s): I50.9 - Heart failure, unspecified Status: Acute (4) Diabetes mellitus with hyperglycemia: Code(s): E11.65 - Type 2 diabetes mellitus with hyperglycemia Status: Acute (5) Hypertension: Code(s): I10 - Essential (primary) hypertension Status: Acute (6) Tobacco dependence: Code(s): F17.200 - Nicotine dependence, unspecified, uncomplicated Status: Acute (7) Hypertension associated with diabetes: Code(s): E11.59 - Type 2 diabetes mellitus with other circulatory complications; I15.2 - Hypertension secondary to endocrine disorders Status: Acute Plan 48-year-old male with history of chronic obesity and longstanding hypertension and diabetes. Presented with complaints of shortness of breath, hearing crackles in his throat when he lays flat, increasing lower extremity edema. Improved. Cardiology consulted and patient being treated for new onset diastolic heart failure. Appreciate Cardiology recommendations. One episode of bradycardia in the 40s while patient was sleeping. This was transient although was made aware by nurse. Continue dose metoprolol and monitor closely on telemetry. HbA1c 7.3. Patient is a very pleasant man and is proud of his ability to adhere to self administration of insulin. I have encouraged continuation of this. Educated on the risk of obesity and how to institute lifestyle modifications. FEN: Saline lock IV. Heart healthy diabetic diet. Fluid restriction. GI prophylaxis: Not indicated DVT prophylaxis: Lovenox 40 mg q.day Lines: Peripheral IV Code Status: Full code Dispo: Stable on medical floor Subjective Date/time seen: 08/31/23 15:54 Interval history: No acute overnight events. Patient reports improved swelling although it is still large his legs. He wants to stay in the hospital. He fears he will have an acute episode if not optimized. Review of Systems Review of Systems: All systems reviewed & are unremarkable except as noted in HPI and below (Subjective) Exam Const: General: comfortable and no acute distress HENMT: Mouth: Yes moist mucous membranes Eyes: General: appearance normal, both eyes and all related structures Sclera: sclerae normal Neck: Neck: supple Resp: Effort & Inspection: normal respiratory effort Other: Patient has bilateral basilar pulmonary rales Cardio: Rate: regular rate Rhythm: regular rhythm Heart sounds: Murmur heart sound present GI: Auscultation: normal bowel sounds Skin: General skin exam: normal color Neuro: Speech: normal speech Other: Alert and oriented x3 Psych: Mental Status: mental status grossly normal Objective Data Vital Signs Vital Signs: Vital Signs - 24 hr 08/30/23 16:00 08/30/23 20:33 08/30/23 20:00 Temperature 97.8 F Pulse Rate 103 H 97 87 Respiratory Rate 18 Blood Pressure 131/70 Pulse Oximetry 96 Oxygen Delivery Fraction of Inspired Oxygen 08/30/23 20:00 08/30/23 23:22 08/30/23 23:33 Temperature Pulse Rate 74 84 Respiratory Rate 18 20 Blood Pressure Pulse Oximetry Oxygen Delivery Room Air Autopap Fraction of Inspired Oxygen 08/30/23 23:33 08/31/23 00:00 08/31/23 04:55 Temperature Pulse Rate 84 94 Respiratory Rate 20 17 Blood Pressure Pulse Oximetry Oxygen Delivery Autopap Fraction of Inspired Oxygen 08/31/23 04:16 08/31/23 04:00 08/31/23 08:39 Temperature 97.3 F L Pulse Rate 88 76 85 Respiratory Rate 18 Blood Pressure 139/81 Pulse Oximetry 100 Oxygen Delivery Fraction of Inspired Oxygen 08/31/23 08:02 08/31/23 08:30 08/31/23 14:00 Temperature
[2023-08-31 16:35] LABS: Glucose Point of Care 147 mg/dl (65-105)
[2023-08-31] MEDS: FUROSEMIDE 40 MG TABLET PO (17:30)
[2023-08-31 20:24] LABS: Glucose Point of Care 172 mg/dl (65-105)
[2023-08-31] MEDS: ATORVASTATIN 40 MG TABLET PO (20:34)
[2023-09-01] VITALS (10 sets, daily range): BP systolic 134–166; BP diastolic 76–96; PULSE 71–94; RESP 18–24; TEMP 35.8–36.2; O2SAT 96–99
[2023-09-01 07:37] LABS: Anion Gap 5 mmol/L (8-16); Blood Urea Nitrogen 19 mg/dL (9-20); Calcium 8.7 mg/dL (8.4-10.2); Carbon Dioxide 30 mmol/L (22-30); Chloride 104 mmol/L (98-107); Estimated CRCL calculation 109 ml/min; Estimated Glomerular Filt Rate > 60; Glucose 126 mg/dL (65-110); Magnesium 2.2 mg/dL (1.6-2.3); Potassium 3.8 mmol/L (3.4-5.0); Sodium 139 mmol/L (137-145)
[2023-09-01 07:42] LABS: Glucose Point of Care 133 mg/dl (65-105)
[2023-09-01] MEDS: INSULIN GLARGINE (*BKC) 100 UNITS/ML 32 UNITS SUB-Q (08:32)
[2023-09-01] MEDS: ACETAMINOPHEN 500 MG TABLET 1000 MG PO (08:34)
[2023-09-01] MEDS: POTASSIUM CHLORIDE 20 MEQ ER TABLET PO (08:34)
[2023-09-01] MEDS: GABAPENTIN 400 MG CAPSULE PO ×3 (08:34→17:14)
[2023-09-01] MEDS: METOPROLOL SUCCINATE EXT REL 12.5 MG TABCR PO (08:35)
[2023-09-01] MEDS: FUROSEMIDE 40 MG TABLET PO ×2 (08:35→17:14)
[2023-09-01] MEDS: lisinopriL 20 MG TABLET 40 MG PO (08:36)
[2023-09-01] MEDS: ENOXAPARIN 40 MG/0.4 ML SYRINGE SUB-Q (08:36)
[2023-09-01 11:30] LABS: Glucose Point of Care 217 mg/dl (65-105)
[2023-09-01] MEDS: INSULIN ASPART (*BKC) 100 UNITS/ML SUB-Q (12:01)
--- NOTE | 2023-09-01 13:43 | PM.PNCARD ---
Progress Note: A&P Assessment and Plan (1) Acute exacerbation of congestive heart failure: Code(s): I50.9 - Heart failure, unspecified Status: Acute Assessment and Plan: Likely diastolic with valvular component including MR. --ApneaLink showed AHI of 9. Will need outpatient sleep study --Continue metoprolol succinate --Continue [id number] p.o. b.i.d.. --Continue lisinopril. --Ideally would use Entresto but he has no insurance at this point. --Continue atorvastatin (2) Tobacco dependence: Code(s): F17.200 - Nicotine dependence, unspecified, uncomplicated Status: Acute Assessment and Plan: Tobacco abuse counseling performed (3) Hyperlipidemia associated with type 2 diabetes mellitus: Code(s): E11.69 - Type 2 diabetes mellitus with other specified complication; E78.5 - Hyperlipidemia, unspecified Status: Acute Assessment and Plan: Continue statin. Diabetic management per hospitalist (4) Hypertension associated with diabetes: Code(s): E11.59 - Type 2 diabetes mellitus with other circulatory complications; I15.2 - Hypertension secondary to endocrine disorders Status: Acute Assessment and Plan: Continue above meds for BP including lisinopril, metoprolol (5) Nonrheumatic mitral valve regurgitation: Code(s): I34.0 - Nonrheumatic mitral (valve) insufficiency Status: Acute Assessment and Plan: Moderate by transthoracic echo. Recommend DREW as an outpatient. Plan Okay to discharge patient home. Will arrange follow up in our office. Subjective Date/time seen: 09/01/23 13:43 Interval history: 48-year-old admitted with shortness of breath and heart failure Date of service 08/30/2023: Still swollen. No shortness of breath. No chest pain. Date of service 08/31/2023: Feeling better today. He remains swollen but this is improving. Had some shortness of breath after walking 5-6 laps around the unit. No chest pain. Date of service 08/31: Feeling well today. Lower extremity swelling improves when he keeps his legs elevated. He was sitting for a little bit today so he had some swelling, so he is planning to walk and ambulate to help mobiize the fluid. Review of Systems Review of Systems: All systems reviewed & are unremarkable except as noted in HPI and below (HPI) Exam Const: General: comfortable and no acute distress HENMT: Mouth: Yes moist mucous membranes Eyes: General: appearance normal, both eyes and all related structures Sclera: sclerae normal Resp: Effort & Inspection: normal respiratory effort Cardio: Rate: regular rate Rhythm: regular rhythm Skin: General skin exam: normal color Psych: Mental Status: mental status grossly normal Affect: normal affect Objective Data Vital Signs Vital Signs: Vital Signs - 24 hr 08/31/23 14:00 08/31/23 16:00 08/31/23 19:55 Temperature 36.1 C L 36.4 C Pulse Rate 87 85 94 Respiratory Rate 16 20 Blood Pressure 136/71 178/84 H Pulse Oximetry 99 98 Oxygen Delivery 08/31/23 20:00 08/31/23 20:00 08/31/23 23:41 Temperature Pulse Rate 82 79 Respiratory Rate 18 Blood Pressure Pulse Oximetry 97 Oxygen Delivery Room Air Autopap 09/01/23 00:00 09/01/23 01:49 09/01/23 04:00 Temperature Pulse Rate 77 71 Respiratory Rate 18 Blood Pressure Pulse Oximetry Oxygen Delivery Autopap 09/01/23 04:50 09/01/23 08:35 09/01/23 08:30 Temperature 35.8 C L Pulse Rate 87 94 Respiratory Rate 20 Blood Pressure 166/96 H Pulse Oximetry 99 96 Oxygen Delivery Room Air 09/01/23 08:00 09/01/23 12:00 Temperature Pulse Rate 87 94 Respiratory Rate Blood Pressure Pulse Oximetry Oxygen Delivery Intake/Output Intake/Output: Intake & Output 08/29/23 08/30/23 08/31/23 09/01/23 23:59 23:59 23:59 23:59 Intake Total 720 1375 1110 346 Output Total 3600 1575 1000 Balance -2880 -200 110 346 Meds/Resu
[2023-09-01 16:34] LABS: Glucose Point of Care 154 mg/dl (65-105)
--- NOTE | 2023-09-01 16:36 | PM.DS ---
DS: Admitting Diagnosis Discharge Date 09/01/2023: Admitting Diagnosis (1) Acute exacerbation of congestive heart failure: ?Code(s): I50.9 - Heart failure, unspecified ?Status:?Acute ?Assessment and Plan: ?admit to IMU ?patient has been off of meds due to insurance issue ?aggressive diuresis ?fluid restriction ?cardiology consult ?echocardiogram in a.m. (2) Diabetes mellitus with hyperglycemia: ?Code(s): E11.65 - Type 2 diabetes mellitus with hyperglycemia ?Status:?Acute ?Assessment and Plan: ?restart home meds (3) Tobacco dependence: ?Code(s): F17.200 - Nicotine dependence, unspecified, uncomplicated ?Status:?Acute ?Assessment and Plan: ?nicotine patch as needed DS: Discharge Diagnosis Discharge Diagnosis (1) Hypokalemia: Code(s): E87.6 - Hypokalemia Status: Acute (2) Nonrheumatic mitral valve regurgitation: Code(s): I34.0 - Nonrheumatic mitral (valve) insufficiency Status: Acute (3) Hypertension associated with diabetes: Code(s): E11.59 - Type 2 diabetes mellitus with other circulatory complications; I15.2 - Hypertension secondary to endocrine disorders Status: Acute (4) Hyperlipidemia associated with type 2 diabetes mellitus: Code(s): E11.69 - Type 2 diabetes mellitus with other specified complication; E78.5 - Hyperlipidemia, unspecified Status: Acute (5) Tobacco dependence: Code(s): F17.200 - Nicotine dependence, unspecified, uncomplicated Status: Acute (6) Acute exacerbation of congestive heart failure: Code(s): I50.9 - Heart failure, unspecified Status: Acute (7) Fluid overload: Code(s): E87.70 - Fluid overload, unspecified Status: Acute (8) CHF (congestive heart failure): Code(s): I50.9 - Heart failure, unspecified Status: Acute (9) HLD (hyperlipidemia): Code(s): E78.5 - Hyperlipidemia, unspecified Status: Acute (10) Diabetes mellitus with hyperglycemia: Code(s): E11.65 - Type 2 diabetes mellitus with hyperglycemia Status: Acute (11) Hypertension: Code(s): I10 - Essential (primary) hypertension Status: Acute DS: Summary Hospital Course Reason for hospitalization: Patient admitted with shortness of breath Hospital Course: H&P: HPI History of Present Illness Date/Time: 08/28/23? 01:17 Chief Complaint: ?shortness of breath Narrative: ?this is a 48-year-old male with past medical history significant for diastolic heart failure, insulin-dependent diabetes mellitus, obesity,? tobacco dependence.? Patient presents to the emergency room due to worsening swelling of bilateral lower extremities, increased abdominal girth, PND, orthopnea, shortness of breath, cough productive of white phlegm.? Patient lost his insurance and has been of of his meds for couple of weeks.? Denies any fevers, rigors, chills, denies chest pain, denies syncope, near syncope lightheadedness. HOSPITAL COURSE ... Date of Admission - 08/31/2023: 48-year-old male with history of chronic obesity and longstanding hypertension and diabetes.? Presented with complaints of shortness of breath, hearing crackles in his throat when he lays flat, increasing lower extremity edema. Improved.? Cardiology consulted and patient being treated for new onset diastolic heart failure.? Appreciate Cardiology recommendations. One episode of bradycardia in the 40s while patient was sleeping.? This was transient although was made aware by nurse.? Continue dose metoprolol and monitor closely on telemetry. HbA1c 7.3.? Patient is a very pleasant man and is proud of his ability to adhere to self administration of insulin.? I have encouraged continuation of this. Educated on the risk of obesity and how to institute lifestyle modifications. FEN:? Saline lock IV.? Heart healthy diabetic diet.? Fluid restriction. GI prophylaxis:? Not indicated DVT prophylaxis:? Lovenox 40 mg q.day [place]
== END 2023-09-01 17:20 | disposition home or self-care (01) | DRG 194 ==
LOC: ANHED 08-28 01:56 → ANHIMU 08-28 04:28 → ANH3MEDSUR 08-29 20:01
PROVIDERS: General Practice; Physician Assistant; Admitting Provider Internal Medicine; Emergency Provider Emergency Medicine; PCP Family Medicine; Visit Provider Family Medicine
DX: I11.0 Hypertensive heart disease with heart failure (principal); I50.33 Acute on chronic diastolic (congestive) heart failure; E78.5 Hyperlipidemia, unspecified; E11.65 Type 2 diabetes mellitus with hyperglycemia; G47.30 Sleep apnea, unspecified; E11.59 Type 2 diabetes mellitus with other circulatory complications; I15.2 Hypertension secondary to endocrine disorders; E87.6 Hypokalemia; I34.0 Nonrheumatic mitral (valve) insufficiency; F17.210 Nicotine dependence, cigarettes, uncomplicated; E66.01 Morbid (severe) obesity due to excess calories; Z20.822 Contact with and (suspected) exposure to COVID-19; Z68.41 Body mass index [BMI] 40.0-44.9, adult; Z79.4 Long term (current) use of insulin; Z91.141 Patient's other noncompliance with medication regimen due to financial hardship
CPT/HCPCS: 36415; 71046; 71275; 74177; 80048; 80053; 82948; 83036; 83735; 83880; 84100; 84132; 84484; 85025; 85380; 85610; 85730; 87637; 93005; 93306; 93970; 94640; 94762; 96372; 96374; 99285; A9270; G0378; J1650; J1815; J1940; Q9967